=== PATIENT | female | born 1935 | race Caucasian/White ===

== ENCOUNTER 2019-08-10 09:13 | Outpatient (CLI) | payer MEDICARE, OTHER, SELFPAY ==
--- NOTE | 2019-08-10 14:23 | PFTS_ITS ---
Date of Study:08/10/19 Date of Dictation: MECHANICS: Forced vital capacity (FVC) is reduced. Forced expiratory volume in one second (FEV1) is reduced. FEV1/FVC is reduced. FLOW VOLUME LOOP: Reduced flow at low lung volumes with significant scooping. LUNG VOLUMES: Not performed DIFFUSING CAPACITY FOR CARBON MONOXIDE: Severely diminished INTERPRETATION: The pulmonary function tests are consistent with severe obstruction. A component of restriction cannot be ruled out without the measurement of lung volumes. Gas exchange (DLCO) is severely reduced. MTDD
== END 2019-08-10 09:14 | disposition home or self-care (01) ==
LOC: RT 09:18
PROVIDERS: PCP Internal Medicine; Visit Provider Internal Medicine
DX: J44.9 Chronic obstructive pulmonary disease, unspecified (principal)
CPT/HCPCS: 94060; 94729; J7611

== ENCOUNTER 2019-12-25 16:38 | Emergency (ER) | payer MEDICARE, OTHER, SELFPAY ==
[2019-12-25 17:39] VITALS: BP 168/90; PULSE 77; RESP 16; TEMP 36.3; O2SAT 94; BMI 18.8
--- NOTE | 2019-12-25 18:25 | CTR_ITS ---
PROCEDURE INFORMATION: Exam: CT Head Without Contrast Exam date and time: 12/25/2019 7:16 PM Age: 84 years old Clinical indication: Altered mental status/memory loss; Additional info: AMS TECHNIQUE: Imaging protocol: Computed tomography of the head without contrast. Radiation optimization: All CT scans at this facility use at least one of these dose optimization techniques: automated exposure control; mA and/or kV adjustment per patient size (includes targeted exams where dose is matched to clinical indication); or iterative reconstruction. COMPARISON: No relevant prior studies available. RADIATION DOSE METRICS: Total DLP (mGy-cm): 821.33 FINDINGS: There is [id number] generalized atrophy. There are mild areas of decreased attenuation in the periventricular white matter which is nonspecific but likely relates to small vessel ischemic change. There is no evidence for acute infarct. There is no evidence for mass. There is no hemorrhage. There are no extra-axial fluid collections. There is no midline shift. The skull is intact. The visualized paranasal sinuses are well aerated. There is some minimal fluid within the left sphenoid sinus. There is atherosclerotic change of the cavernous carotid arteries. CT/CT head wo con* [id number] IMPRESSION: No evidence for acute infarct, mass or hemorrhage. Radiation Dose CTDIVOL = (mGy): DLP = 821.33 (mGy-cm)
--- NOTE | 2019-12-25 18:46 | ED_ITS ---
HPI - Psych General: Chief Complaint: Psychiatric Symptoms Stated Complaint: agitation, paranoid, mild confusion Time Seen by Provider: 12/25/19 18:39 History of Present Illness: HPI Narrative: Patient has been more confused since she is been a lot down in her room down the longterm. He just does not understand what is going on. Denies any problems with urination fever chills nausea vomiting. Just increased confusion. complaint: altered mental status Onset (ago): day(s) Duration: intermittent, changing over time and getting worse History of same: Yes Relieving factors: none Exacerbating factors: other (Lockdown nursing note) Associated symptoms: Reports no associated symptoms; Deny depression Treatments prior to arrival: none Review of Systems Const: Denies: fever(s), chills or body aches Eyes: Denies: change in vision or blurry vision ENMT: Reports: other (Eye redness allergies); Denies: throat pain or nasal congestion Card: Denies: chest pain or dyspnea on exertion Resp: Denies: dyspnea, productive cough or non-productive cough GI: Denies: abdominal pain, nausea or vomiting Musc: Denies: extremity pain Skin/Breast: Denies: rash Neuro: Denies: headache(s) Psych: Reports: other (Confusion); Denies: anxiety or depression Cooper/Lymph: Denies: easy bruising PFSH ED PFSH: Medical History (Updated 12/25/19 @ 19:44 by ROBIN Segal) CAD (coronary artery disease) COPD (chronic obstructive pulmonary disease) History of inferior wall myocardial infarction Hyperlipidemia Hypertension Squamous cell carcinoma of left upper extremity Surgical History History of appendectomy (~1940) History of coronary artery stent placement History of hysterectomy (~1982) History of repair of right rotator cuff (~2013) Family History Denies family history of Anesthesia complication Bleeding disorder Social History Smoking and tobacco status: former smoker Quit status (tobacco): has quit using tobacco Year quit tobacco: 3 Second hand smoke exposure: No Alcohol intake: never Desire information about alcohol rehabilitation?: No Counseling given: No Desire information about substance/drug rehabilitation?: No Counseling given: No Adopted: No Caregiver/support person: No Lives independently: Yes Housing: House Marital status: / Highest education level completed: High School Graduate Current occupational status: retired Current occupational exposures/hazards: No Pets and animals: No History of recent travel: No Current gender identity: Female Ashlee/Protestant: Congregational Special ashlee needs: No Financial difficulty paying for basics: Decline to Answer Physical Exam Const: COMMON NORMALS: no acute distress, average body habitus and patient oriented x3 HENMT: COMMON NORMALS: normocephalic HEAD & SCALP: normal to inspection and normocephalic FACE & SINUS: normal facial exam Eye: COMMON NORMALS: conjunctivae normal GENERAL EYE: other (Conjunctive is slightly red both eyes) CONJUNCTIVA: Yes conjunctivae normal Neck/C-Spine: COMMON NORMALS: no JVD Chest: COMMONS NORMALS: normal inspection of the chest Resp: COMMON NORMALS: normal respiratory effort and clear to auscultation bilaterally AUSCULTATION: clear to auscultation bilaterally Cardio: COMMON NORMALS: no JVD, regular rate and regular rhythm RATE: regular rate RHYTHM: regular rhythm GI: COMMON NORMALS: Normal to inspection, nondistended, normoactive bowel sounds present Extremity: COMMON NORMALS: normal to inspection and full ROM Neuro: COMMON NORMALS: patient oriented x3 and CN's II-XII intact bilaterally MDM - Psych Lab Data: Labs: Lab Results 12/25/19 12/25/19 Range/Units 18:59 18:59 WBC 6.5 (4.0-10.0) 10^3/ uL RBC 5.19 (4.1-5.3) 10^6/u L Hgb 16.1 H (11.5-15.3) g/dL Hct 48.2 H (37.0-47.0) % MCV 92.9 (81-99) fL MCH 31.0 (28.0-34.0) pg MCHC 33.4 (30.0-36.0) g/dL RDW 12.1 (12.1-15.1) % Plt Count 205 (130-400) 10^3/c mm MPV 10.5 H (7.4-10.4) fL Neut % (Auto) 69.1 % Lymph % (Auto) 14.9 % [place] % (Auto) 11.8 % Eos % (Auto) 3.1 % Baso % (Auto) 0.6 % Neut # (Auto) 4.52 (1.8-7.7) 10^3/u L Lymph # (Auto) 1.0 (0.8-4.8) 10^3/u L [place] # (Auto) 0.8 (0.2-0.9) 10^3/u L Eos # (Auto) 0.2 (0.0-0.8) 10^3/u L Baso # (Auto) 0.0 (0.0-0.1) 10^3/u L Nucleated RBC % (a uto) 0 % Nucleated RBCs # 0.0 /100WBC Sodium 131 L (136-145) mmol/L Potassium 4.6 (3.5-5.1) mmol/L Chloride 94 L (98-107) mmol/L Carbon Dioxide 25 (22-29) mmol/L Anion Gap 16.6 (5-19) BUN 10 (8-23) mg/dL Creatinine 0.6 (0.5-0.9) mg/dL GFR Calculation Not Reportable Glucose 109 (65-115) mg/dL Calculated Osmolal ity 272 L (285-295) mOsm/k g Calcium 8.9 (8.5-10.5) mg/dL Total Bilirubin 1.1 (0.15-1.2) mg/dL AST 23 (0-32) U/L ALT 12 (0-33) U/L Alkaline Phosphata se 112 H (35-105) IU/L Total Protein 7.2 (6.6-8.7) g/dL Albumin 4.2 (3.5-5.2) g/dL Globulin 3.0 (1.3-4.6) g/dL Discharge Plan Discharge Patient Disposition: Home Clinical Impression: Confusion Condition: Stable Prescriptions: No Action Brovana 15 mcg/2 mL solution for nebulization 2 ml INHALATION BID Qty: 120 RF: 6 albuterol sulfate [Ventolin HFA] 90 mcg/actuation HFA aerosol inhaler 2 puff INHALATION QID PRNRF: 0 nitroglycerin [Nitrostat] 0.4 mg tablet, sublingual 0.4 mg SUBLINGUAL Q5M PRNRF: 0 clopidogrel 75 mg tablet 75 mg PO ONCE RF: 0 aspirin 81 mg tablet,delayed release (DR/EC) 40 mg PO ONCE RF: 0 (DME) nebulizers Misc See Rx Instructions .ROUTE .MEDSUPPLY Qty: 1 RF: 0 (DME) nebulizer accessories Kit See Rx Instructions .ROUTE .MEDSUPPLY Qty: 1 RF: 0 cetirizine-pseudoephedrine [Zyrtec-D] 5-120 mg tablet extended release 12 hr 1 tab PO DAILY Qty: 24 RF: 0 Incruse Ellipta 62.5 mcg/actuation blister with device 1 inh INHALATION DAILY Qty: 30 RF: 3 simvastatin 40 mg tablet 40 mg PO ONCE Qty: 90 RF: 3 metoprolol tartrate 25 mg tablet 12.5 mg PO BID Qty: 90 RF: 3 Discharge Orders: Discharge Order (Routine); Ordered 12/25/19 Ordered By: Jvai Lainez Referrals: Oscar Gillespie MD [Primary Care Provider] - Discharge Diet: Usual diet Discharge Activity: Resume usual activity Activity Restrictions/Additional Instructions: Follow-up your family medical provider if symptoms continue went over test CT of the head was negative labs look good to your present diet Discharge Date/Time: 12/25/19 19:51 Coding Level of Care Code ED Curator [employer] for Curt Reinoso Exam Comprehensive
[2019-12-25 19:17] LABS: Basophils % 0.6 %; Eosinophils # 0.2 10^3/uL (0.0-0.8); Eosinophils % 3.1 %; Hematocrit 48.2 % (37.0-47.0); Hemoglobin 16.1 g/dL (11.5-15.3); Lymphocytes % 14.9 %; Mean Corpuscular HGB Conc 33.4 g/dL (30.0-36.0); Mean Corpuscular Volume 92.9 fL (81-99); Mean Platelet Volume 10.5 fL (7.4-10.4); Monocytes # 0.8 10^3/uL (0.2-0.9); Monocytes % 11.8 %; Neutrophils # 4.52 10^3/uL (1.8-7.7); Neutrophils % 69.1 %; Nucleated Red Blood Cells % 0 %; Platelet Count 205 10^3/cmm (130-400); Red Blood Count 5.19 10^6/uL (4.1-5.3); Red Cell Distribution Width 12.1 % (12.1-15.1); White Blood Count 6.5 10^3/uL (4.0-10.0)
[2019-12-25 19:25] LABS: Alanine Aminotransferase 12 U/L (0-33); Albumin Level 4.2 g/dL (3.5-5.2); Alkaline Phosphatase 112 IU/L (35-105); Anion Gap 16.6 (5-19); Aspartate Amino Transferase 23 U/L (0-32); Blood Urea Nitrogen 10 mg/dL (8-23); Calcium 8.9 mg/dL (8.5-10.5); Carbon Dioxide 25 mmol/L (22-29); Chloride 94 mmol/L (98-107); Glucose 109 mg/dL (65-115); Osmolality Calculated 272 mOsm/kg (285-295); Potassium 4.6 mmol/L (3.5-5.1); Sodium 131 mmol/L (136-145); Total Bilirubin 1.1 mg/dL (0.15-1.2); Total Protein 7.2 g/dL (6.6-8.7)
[2019-12-25 19:50] VITALS: BP 174/87; PULSE 90; RESP 18; O2SAT 90
== END 2019-12-25 19:51 | disposition home or self-care (01) ==
PROVIDERS: Emergency Provider Nurse Practitioner Family; PCP Internal Medicine
DX: R41.0 Disorientation, unspecified (principal); Z79.02 Long term (current) use of antithrombotics/antiplatelets; Z79.82 Long term (current) use of aspirin; I25.10 Atherosclerotic heart disease of native coronary artery without angina pectoris; J44.9 Chronic obstructive pulmonary disease, unspecified; I25.2 Old myocardial infarction; E78.5 Hyperlipidemia, unspecified; I10 Essential (primary) hypertension; Z87.891 Personal history of nicotine dependence
CPT/HCPCS: 12345; 36415; 70450; 80053; 85025; 99283; 99284

== ENCOUNTER 2019-12-29 09:04 | Emergency (ER) | payer MEDICARE, OTHER, SELFPAY ==
[2019-12-29 09:04] VITALS: BP 142/63; PULSE 92; RESP 18; O2SAT 96; BMI 20.7
[2019-12-29 09:11] VITALS: PULSE 96; RESP 18; O2SAT 95
--- NOTE | 2019-12-29 09:13 | CTR_ITS ---
PROCEDURE INFORMATION: Exam: CT Head Without Contrast Exam date and time: 12/29/2019 9:14 AM Age: 84 years old Clinical indication: Injury or trauma; Fall; Blunt trauma (contusions or hematomas) TECHNIQUE: Imaging protocol: Computed tomography of the head without contrast. Radiation optimization: All CT scans at this facility use at least one of these dose optimization techniques: automated exposure control; mA and/or kV adjustment per patient size (includes targeted exams where dose is matched to clinical indication); or iterative reconstruction. COMPARISON: CT head wo con* [id number] 12/25/2019 7:15 PM RADIATION DOSE METRICS: Total DLP (mGy-cm): 706.19 FINDINGS: Brain: There is patchy decreased density of the white matter indicating chronic small vessel white matter ischemia. There is no intracranial hemorrhage, edema or other acute abnormality in the brain. Cerebral ventricles: Generalized prominence of the ventricles and sulci consistent with diffuse chronic atrophy. Bones/joints: Unremarkable. No acute fracture. Paranasal sinuses: Visualized sinuses are unremarkable. No fluid levels. Mastoid air cells: Visualized mastoid air cells are well aerated. Soft tissues: Unremarkable. CT/CT head wo con* [id number] IMPRESSION: Chronic atrophy. No acute abnormality. Radiation Dose CTDIVOL = (mGy): DLP = 706.19 (mGy-cm)
--- NOTE | 2019-12-29 09:18 | XRR_ITS ---
PROCEDURE INFORMATION: Exam: XR Right Tibia and Fibula Exam date and time: 12/29/2019 9:19 AM Age: 84 years old Clinical indication: Injury or trauma; Fall; Blunt trauma; Lower leg; Right TECHNIQUE: Imaging protocol: XR Right tibia and fibula. Views: 2 views. COMPARISON: No relevant prior studies available. FINDINGS: Bones/joints: Normal. Soft tissues: Normal. XR/XR tibia fibula RT 2V [id number] IMPRESSION: No acute findings.
--- NOTE | 2019-12-29 09:19 | W.ED.FALL ---
HPI - Fall General: Chief Complaint: Fall Stated Complaint: FALL HEMATOMA TO LEG Time Seen by Provider: 12/29/19 09:05 History of Present Illness: HPI Narrative: [facility] with complaint of a hematoma to right lower extremity and a fall with unknown loss of consciousness. Was found on the floor today patient is confused as usual. Was seen here earlier in the week with a CT head which is negative. complaint: fall Onset (ago): hour(s) Fall from: other (Unknown) Fall witnessed: no Place fall occurred: [facility] Loss of consciousness: Unsure Prolonged down time: unclear Symptoms prior to fall: other (Unknown) Context: other (Unknown) Location of injury: other (Has hematoma right leg been present for couple 3 days) Severity: mild Associated symptoms-after fall: Denies abdominal pain, chest pain or headache(s) Review of Systems Const: Denies: fever(s), chills or body aches Eyes: Denies: change in vision or blurry vision ENMT: Denies: throat pain or nasal congestion Card: Denies: chest pain or dyspnea on exertion Resp: Denies: dyspnea, productive cough or non-productive cough GI: Denies: abdominal pain, nausea or vomiting Musc: Reports: extremity pain and other (History of 3 blisters right lower extremity with redness and tenderness patient complains of pain there) Skin/Breast: Denies: rash Neuro: Denies: headache(s) Psych: Denies: anxiety or depression Cooper/Lymph: Denies: easy bruising PFS ED PFSH: Medical History (Updated 12/29/19 @ 11:40 by ROBIN Segal) CAD (coronary artery disease) COPD (chronic obstructive pulmonary disease) History of inferior wall myocardial infarction Hyperlipidemia Hypertension Squamous cell carcinoma of left upper extremity Surgical History History of appendectomy (~1940) History of coronary artery stent placement History of hysterectomy (~1982) History of repair of right rotator cuff (~2013) Family History Denies family history of Anesthesia complication Bleeding disorder Social History Smoking and tobacco status: former smoker Quit status (tobacco): has quit using tobacco Year quit tobacco: 3 Second hand smoke exposure: No Alcohol intake: never Desire information about alcohol rehabilitation?: No Counseling given: No Desire information about substance/drug rehabilitation?: No Counseling given: No Adopted: No Caregiver/support person: No Lives independently: Yes Housing: House Marital status: / Highest education level completed: High School Graduate Current occupational status: retired Current occupational exposures/hazards: No Pets and animals: No History of recent travel: No Current gender identity: Female Ashlee/Nondenominational: Caodaism Special ashlee needs: No Financial difficulty paying for basics: Decline to Answer Physical Exam Const: COMMON NORMALS: no acute distress, average body habitus and patient oriented x3 HENMT: COMMON NORMALS: normocephalic HEAD & SCALP: normal to inspection and normocephalic FACE & SINUS: normal facial exam Eye: COMMON NORMALS: conjunctivae normal GENERAL EYE: appearance normal, both eyes and all related structures CONJUNCTIVA: Yes conjunctivae normal Neck/C-Spine: COMMON NORMALS: no JVD Chest: COMMONS NORMALS: normal inspection of the chest Resp: COMMON NORMALS: normal respiratory effort and clear to auscultation bilaterally AUSCULTATION: clear to auscultation bilaterally Cardio: COMMON NORMALS: no JVD, regular rate and regular rhythm RATE: regular rate RHYTHM: regular rhythm GI: COMMON NORMALS: Normal to inspection, nondistended, normoactive bowel sounds present Extremity: COMMON NORMALS: full ROM NARRATIVE EXTREMITY EXAM: Right lower extremity has 3 clear to bloody blisters to the medial aspect has tenderness throughout the lower extremity below the knee and does have redness with increased warmth to that extremity 1+ nonpitting edema Neuro: COMMON NORMALS: patient oriented x3 Skin: NARRATIVE SKIN EXAM: Very poor skin turgor Course Vital Signs: Vital signs: Vital Signs Pulse Rate 106 H 12/29/19 12:27 Respiratory Rate 20 H 12/29/19 12:27 Blood Pressure 135/69 12/29/19 11:56 Pulse Oximetry 95 12/29/19 12:27 MDM - Fall MDM Narrative: Medical decision making narrative: Discussed case with Dr. Rodriguez. Went over lab values with Dr. Rodriguez. Patient with increased BUN and creatinine increased white WBC has right lower leg cellulitis UA was positive on microscopic with 1+ bacteria and with with just a trace of blood. If leg worsens instructed bring patient back to the ER. Patient maintained sats 96to 94% here and not on O2. Lab Data: Labs: Lab Results 12/29/19 12/29/19 12/29/19 Range/Units 09:46 09:46 10:48 WBC 20.8 H (4.0-10.0) 10^3/ uL RBC 5.23 (4.1-5.3) 10^6/u L Hgb 16.2 H (11.5-15.3) g/dL Hct 48.0 H (37.0-47.0) % MCV 91.8 (81-99) fL MCH 31.0 (28.0-34.0) pg MCHC 33.8 (30.0-36.0) g/dL RDW 12.6 (12.1-15.1) % Plt Count 173 (130-400) 10^3/c mm MPV 11.2 H (7.4-10.4) fL Neut % (Auto) 91.6 % Lymph % (Auto) 1.5 % [place] % (Auto) 5.8 % Eos % (Auto) 0.0 % Baso % (Auto) 0.4 % Neut # (Auto) 18.99 H (1.8-7.7) 10^3/u L Lymph # (Auto) 0.3 L (0.8-4.8) 10^3/u L [place] # (Auto) 1.2 H (0.2-0.9) 10^3/u L Eos # (Auto) 0.0 (0.0-0.8) 10^3/u L Baso # (Auto) 0.1 (0.0-0.1) 10^3/u L Nucleated RBC % (a uto) 0 % Nucleated RBCs # 0.0 /100WBC Sodium 125 L (136-145) mmol/L Potassium 4.6 (3.5-5.1) mmol/L Chloride 88 L (98-107) mmol/L Carbon Dioxide 25 (22-29) mmol/L Anion Gap 16.6 (5-19) BUN 31 H (8-23) mg/dL Creatinine 1.1 H (0.5-0.9) mg/dL GFR Calculation Not Reportable Glucose 135 H (65-115) mg/dL Calculated Osmolal ity 269 L (285-295) mOsm/k g Calcium 9.8 (8.5-10.5) mg/dL Total Bilirubin 1.7 H (0.15-1.2) mg/dL AST 15 (0-32) U/L ALT 10 (0-33) U/L Alkaline Phosphata se 98 (35-105) IU/L Total Protein 6.8 (6.6-8.7) g/dL Albumin 3.4 L (3.5-5.2) g/dL Globulin 3.4 (1.3-4.6) g/dL Urine Color Dark yellow (Yellow) Urine Appearance Clear (CLEAR) Urine pH 5 (5-7) Ur Specific Gravit y 1.025 (1.005-1.030) Urine Protein 1+ H (Negative) Urine Glucose (UA) Norm (Normal) Urine Ketones 1+ H (Negative) Urine Blood Trace H (Negative) Urine Nitrate Negative (Negative) Urine Bilirubin 1+ H (Negative) Urine Urobilinogen 4 H (Negative) mg/dL Ur Leukocyte Mary Kay ase Negative (Negative) Urine RBC None (0-2) /hpf Urine WBC 0-4 H (0-5) /hpf Ur Squamous Epith Cells Rare (0-5) /hpf Amorphous Sediment 2+ /hpf Urine Bacteria 1+ H (NONE) /hpf Hyaline Casts 5-10 H /lpf EKG Data^: EKG 1: EKG interpretation date: 12/29/19 EKG interpretation time: 09:53 Interpretation: Sinus rhythm 95 bpm AK interval 152 ms QRS duration 67 ms has right atrial enlargement P wave 0.3 mV Discharge Plan Discharge Patient Disposition: Home Clinical Impression: Acute hyponatremia, Acute UTI Cellulitis Qualifiers: Site of cellulitis: extremity Site of cellulitis of extremity: lower extremity Laterality: right Qualified Code(s): L03.115 - Cellulitis of right lower limb Condition: Stable Prescriptions: New Keflex 500 mg capsule 500 mg PO TID 7 Days Qty: 21 RF: 0 No Action Brovana 15 mcg/2 mL solution for nebulization 2 ml INHALATION BID Qty: 120 RF: 6 albuterol sulfate [Ventolin HFA] 90 mcg/actuation HFA aerosol inhaler 2 puff INHALATION QID PRNRF: 0 nitroglycerin [Nitrostat] 0.4 mg tablet, sublingual 0.4 mg SUBLINGUAL Q5M PRNRF: 0 clopidogrel 75 mg tablet 75 mg PO ONCE RF: 0 aspirin 81 mg tablet,delayed release (DR/EC) 40 mg PO ONCE RF: 0 (DME) nebulizers Misc See Rx Instructions .ROUTE .MEDSUPPLY Qty: 1 RF: 0 (DME) nebulizer accessories Kit See Rx Instructions .ROUTE .MEDSUPPLY Qty: 1 RF: 0 cetirizine-pseudoephedrine [Zyrtec-D] 5-120 mg tablet extended release 12 hr 1 tab PO DAILY Qty: 24 RF: 0 Incruse Ellipta 62.5 mcg/actuation blister with device 1 inh INHALATION DAILY Qty: 30 RF: 3 simvastatin 40 mg tablet 40 mg PO ONCE Qty: 90 RF: 3 metoprolol tartrate 25 mg tablet 12.5 mg PO BID Qty: 90 RF: 3 Discharge Orders: Discharge Order (Routine); Ordered 12/29/19 Ordered By: Javi Lainez Referrals: Oscar Gillespie MD [Primary Care Provider] - Discharge Diet: Usual diet Discharge Activity: Resume usual activity Patient Instructions: Cellulitis (ED) Activity Restrictions/Additional Instructions: Follow-up with medical provider as directed. Take medications as prescribed. Return to the ER or your medical provider if condition worsens. Please read and understand discharge instructions. If any questions ask please. Make sure to drink plenty of fluids. Keep right lower extremity wrapped. [facility] in next day or 2. Recheck basic labs on Tuesday. Patient is a fall risk patient is to use walker anytime she is up. Discharge Date/Time: 12/29/19 12:32 Coding Level of Care Code ED Business Systems Lead for Curt Fwd Exam Comprehensive
--- NOTE | 2019-12-29 09:21 | ECG_ITS ---
[facility] Test Date: 2019-12-29 Pat Name: Anthony Acosta Department: Room: Gender: Female Dictaphone Operator: : 1935 Requested By: Javi Lainez Order Number: [id number] Jonas MD: Elizabeth Brian M.D. Measurements Intervals [place] Rate: 95 P: 85 ID: [id number] QRS: 45 QRSD: 67 T: 76 QT: 322 QTc: 405 Interpretive Statements SINUS RHYTHM RIGHT ATRIAL ENLARGEMENT [0.3mV P WAVE] LOW QRS VOLTAGE IN EXTREMITY LEADS [QRS DEFLECTION < 0.5 mV IN LIMB LEADS] Compared to ECG 03/26/2018 16:33:02 Low QRS voltage now present Myocardial infarct finding no longer present Electronically Signed On 12-29-2019 17:55:11 CDT by Elizabeth Brian M.D. [email or web address]
[2019-12-29 10:05] LABS: Basophils # 0.1 10^3/uL (0.0-0.1); Basophils % 0.4 %; Hemoglobin 16.2 g/dL (11.5-15.3); Lymphocytes # 0.3 10^3/uL (0.8-4.8); Lymphocytes % 1.5 %; Mean Corpuscular HGB Conc 33.8 g/dL (30.0-36.0); Mean Corpuscular Volume 91.8 fL (81-99); Mean Platelet Volume 11.2 fL (7.4-10.4); Monocytes # 1.2 10^3/uL (0.2-0.9); Monocytes % 5.8 %; Neutrophils # 18.99 10^3/uL (1.8-7.7); Neutrophils % 91.6 %; Nucleated Red Blood Cells % 0 %; Platelet Count 173 10^3/cmm (130-400); Red Blood Count 5.23 10^6/uL (4.1-5.3); Red Cell Distribution Width 12.6 % (12.1-15.1); White Blood Count 20.8 10^3/uL (4.0-10.0)
[2019-12-29 10:13] LABS: Alanine Aminotransferase 10 U/L (0-33); Albumin Level 3.4 g/dL (3.5-5.2); Alkaline Phosphatase 98 IU/L (35-105); Anion Gap 16.6 (5-19); Aspartate Amino Transferase 15 U/L (0-32); Blood Urea Nitrogen 31 mg/dL (8-23); Calcium 9.8 mg/dL (8.5-10.5); Carbon Dioxide 25 mmol/L (22-29); Chloride 88 mmol/L (98-107); Globulin 3.4 g/dL (1.3-4.6); Glucose 135 mg/dL (65-115); Osmolality Calculated 269 mOsm/kg (285-295); Potassium 4.6 mmol/L (3.5-5.1); Sodium 125 mmol/L (136-145); Total Bilirubin 1.7 mg/dL (0.15-1.2); Total Protein 6.8 g/dL (6.6-8.7)
[2019-12-29] MEDS: cefTRIAXone 1,000 MG in sodium chloride 0.9% (plus) 50 ML 100 MG IV (10:27)
[2019-12-29 10:29] VITALS: BP 137/64; PULSE 98; RESP 29; O2SAT 96
[2019-12-29] MEDS: sodium chloride 0.9% 1,000 ML 999 ML IV (11:12)
[2019-12-29 11:22] LABS: Blood Urine Trace (Negative); Glucose Urine UA Norm (Normal); Ketones Urine 1+ (Negative); Nitrate Urine Negative (Negative); Protein Urine 1+ (Negative); Specific Gravity, Urine 1.025 (1.005-1.030); Urine Appearance Clear (CLEAR); Urine Color Dark Yellow (Yellow); pH Urine 5 (5-7)
[2019-12-29 11:23] LABS: Add Urine Microscopic? YES; Bacteria Urine 1+ /hpf; Bilirubin Urine 1+ (Negative); Leukocyte Esterase Urine Negative (Negative); Squamous Epithelial Cell Urine RARE /hpf (0-5); Urobilinogen Urine 4 mg/dL (Negative); WBC Urine 0-4 /hpf (0-5)
[2019-12-29 11:24] LABS: Add Urine Culture? No; Amorphous Sediment Urine 2+ /hpf
[2019-12-29 11:56] VITALS: BP 135/69; PULSE 107; RESP 20; O2SAT 98
[2019-12-29 12:27] VITALS: PULSE 106; RESP 20; O2SAT 95
== END 2019-12-29 12:32 | disposition home or self-care (01) ==
PROVIDERS: Emergency Provider Nurse Practitioner Family; PCP Internal Medicine
DX: L03.115 Cellulitis of right lower limb (principal); N39.0 Urinary tract infection, site not specified; E87.1 Hypo-osmolality and hyponatremia; Z79.02 Long term (current) use of antithrombotics/antiplatelets; Z79.82 Long term (current) use of aspirin; I25.10 Atherosclerotic heart disease of native coronary artery without angina pectoris; J44.9 Chronic obstructive pulmonary disease, unspecified; I25.2 Old myocardial infarction; E78.5 Hyperlipidemia, unspecified; I10 Essential (primary) hypertension; Z87.891 Personal history of nicotine dependence
CPT/HCPCS: 12345; 36415; 70450; 73590; 80053; 81001; 85025; 87040; 93005; 96365; 99283; 99284; J0696; J7030

== ENCOUNTER 2020-02-19 12:53 | Inpatient (IN) | payer MEDICARE, OTHER, SELFPAY ==
[2020-02-19] VITALS (9 sets, daily range): BP systolic 120–149; BP diastolic 70–97; PULSE 74–118; RESP 16–28; TEMP 36.6–38.1; O2SAT 94–100; BMI 18.8
--- NOTE | 2020-02-19 13:28 | XRR_ITS ---
PROCEDURE INFORMATION: Exam: XR Chest, 1 View Exam date and time: 02/19/2020 1:29 PM Age: 85 years old Clinical indication: Cough and dyspnea; Additional info: Dyspnea/cough TECHNIQUE: Imaging protocol: XR of the chest Views: 1 view. COMPARISON: CR Chest 1 [place] [id number] 03/26/2018 9:27 AM FINDINGS: Lungs: There is overinflation of the lungs consistent with emphysema. Bilateral interstitial fibrosis is present and unchanged. There is no airspace consolidation. Pleural space: Unremarkable. No pleural effusion. No pneumothorax. Heart/Mediastinum: Heart is normal for the AP projection. There is calcification of the aortic arch. Bones/joints: Unremarkable. XR/XR chest 1V portable [id number] IMPRESSION: 1. Emphysema with interstitial fibrosis. 2. No acute abnormality.
[2020-02-19 13:44] LABS: Basophils # 0.1 10^3/uL (0.0-0.1); Basophils % 0.3 %; Hematocrit 37.5 % (37.0-47.0); Hemoglobin 11.1 g/dL (11.5-15.3); Lymphocytes # 0.7 10^3/uL (0.8-4.8); Lymphocytes % 2.7 %; Mean Corpuscular HGB Conc 29.6 g/dL (30.0-36.0); Mean Corpuscular Hemoglobin 25.5 pg (28.0-34.0); Mean Platelet Volume 9.9 fL (7.4-10.4); Monocytes # 1.1 10^3/uL (0.2-0.9); Monocytes % 4.4 %; Neutrophils # 23.56 10^3/uL (1.8-7.7); Neutrophils % 91.8 %; Nucleated Red Blood Cells % 0 %; Platelet Count 354 10^3/cmm (130-400); Red Blood Count 4.36 10^6/uL (4.1-5.3); Red Cell Distribution Width 17.6 % (12.1-15.1); White Blood Count 25.7 10^3/uL (4.0-10.0)
--- NOTE | 2020-02-19 13:53 | ED_ITS ---
HPI - SOB/Dyspnea General: Chief Complaint: Shortness of Breath/Dyspnea Stated Complaint: MS CHANGES, RESP Time Seen by Provider: 02/19/20 13:12 History of Present Illness: HPI Narrative: 85-year-old female brought in by EMS from a local assisted living care. There is concern there that she had change in mental status she also seemed to have significant difficulty breathing is conversationally dyspneic. She is unable to answer in a way that is helpful at all to contribute to her history she does follow simple commands and responds to verbal stimuli but her responses are nonsensical at best. MD elicited complaint: shortness of breath and cough Pertinent past history: COPD Onset (ago): hour(s) Timing: constant Severity: moderate Exacerbating factors: coughing Relieving factors: oxygen Known history of: COPD Associated symptoms: Reports cough; Deny abdominal pain, chest pain, fever(s) or vomiting Treatment prior to arrival: oxygen Review of Systems General: Reports: ROS unobtainable due to mental status Const: Denies: fever(s) Card: Denies: chest pain GI: Denies: abdominal pain or vomiting PFS ED PFSH: Medical History (Updated 02/19/20 @ 17:00 by Alessandro Ferreira DO) CAD (coronary artery disease) COPD (chronic obstructive pulmonary disease) History of inferior wall myocardial infarction Hyperlipidemia Hypertension Squamous cell carcinoma of left upper extremity Surgical History History of appendectomy (~1940) History of coronary artery stent placement History of hysterectomy (~1982) History of repair of right rotator cuff (~2013) Family History Denies family history of Anesthesia complication Bleeding disorder Social History Smoking and tobacco status: former smoker Quit status (tobacco): has quit using tobacco Year quit tobacco: 3 Second hand smoke exposure: No Alcohol intake: never Desire information about alcohol rehabilitation?: No Counseling given: No Desire information about substance/drug rehabilitation?: No Counseling given: No Adopted: No Caregiver/support person: No Lives independently: Yes Housing: House Marital status: / Highest education level completed: High School Graduate Current occupational status: retired Current occupational exposures/hazards: No Pets and animals: No History of recent travel: No Current gender identity: Female Ashlee/Methodist: Anabaptist Special ashlee needs: No Financial difficulty paying for basics: Decline to Answer Physical Exam HENMT: COMMON NORMALS: normocephalic, atraumatic and hearing grossly normal bilaterally HEAD & SCALP: normocephalic and atraumatic Neck/C-Spine: COMMON NORMALS: no JVD Lymph: LYMPHATIC: no lymphadenopathy noted and no lymphedema noted Resp: AUSCULTATION: wheezes and diminished lung sounds Cardio: COMMON NORMALS: no JVD, regular rate, regular rhythm and No murmurs present (Cardio) RATE: regular rate RHYTHM: regular rhythm GI: COMMON NORMALS: Soft to palpation and No hepatosplenomegaly present AUSCULTATION: Yes normoactive bowel sounds PALPATION: Yes Soft to palpation, No Tenderness to palpation present (GI), No Guarding due to palpation present (GI) and Yes No hepatosplenomegaly present Extremity: OTHER: Redness and erythema slight induration bilaterally lower extremities are some actually subcutaneous purulent material on the right lower leg in the medial aspect looks like from work comes in friction with the other leg where she lays the left leg over top of it. On left upper arm she has some excoriation and mild redness does not look acutely infected is not indurated. Skin: COMMON NORMALS: no rashes or lesions noted GENERAL SKIN EXAM: no rashes or lesions noted Course Vital Signs: Vital signs: Vital Signs Temperature 97.9 F 02/19/20 12:58 Pulse Rate 118 H 02/19/20 12:58 Respiratory Rate 28 H 02/19/20 12:58 Blood Pressure 144/90 02/19/20 12:58 Pulse Oximetry 100 02/19/20 12:58 MDM - SOB/Dyspnea MDM Narrative: Medical decision making narrative: Her Covid test is negative I suspect her elevated white count is due to her cellulitis was started on vancomycin and admit discussed Dr. oR she is a no code Lab Data: Labs: Lab Results 02/19/20 02/19/20 02/19/20 Range/Units 12:39 12:39 12:39 WBC 25.7 H (4.0-10.0) 10^3/ uL RBC 4.36 (4.1-5.3) 10^6/u L Hgb 11.1 L (11.5-15.3) g/dL Hct 37.5 (37.0-47.0) % MCV 86.0 (81-99) fL MCH 25.5 L (28.0-34.0) pg MCHC 29.6 L (30.0-36.0) g/dL RDW 17.6 H (12.1-15.1) % Plt Count 354 (130-400) 10^3/c mm MPV 9.9 (7.4-10.4) fL Neut % (Auto) 91.8 % Lymph % (Auto) 2.7 % [place] % (Auto) 4.4 % Eos % (Auto) 0.0 % Baso % (Auto) 0.3 % Neut # (Auto) 23.56 H (1.8-7.7) 10^3/u L Lymph # (Auto) 0.7 L (0.8-4.8) 10^3/u L [place] # (Auto) 1.1 H (0.2-0.9) 10^3/u L Eos # (Auto) 0.0 (0.0-0.8) 10^3/u L Baso # (Auto) 0.1 (0.0-0.1) 10^3/u L Nucleated RBC % (a uto) 0 % Nucleated RBCs # 0.0 /100WBC Specimen Type Sample Site ABG pH (7.35-7.45) ABG pCO2 (35-45) mmHg ABG pO2 (80.0-100.0) mmH g ABG HCO3 (22-26) mmol/L ABG O2 Saturation ABG Base Excess (-2.0-2.0) mmol/ L Lamont Test A-a O2 Gradient (5-10) mmHg Hematocrit (37-47) % Hgb O2 Saturation (95-100) % Carboxyhemoglobin (0.4-20.1) %THgb Methemoglobin (0.4-1.5) % Total Hemoglobin (12-16) g/dL Ionized Calcium (1.1-1.4) mmol/L O2 Delivery Device FiO2 % Acute Care Nurse ID Sodium 135 L (136-145) mmol/L Potassium 4.0 (3.5-5.1) mmol/L Chloride 95 L (98-107) mmol/L Carbon Dioxide 25 (22-29) mmol/L Anion Gap 19.0 (5-19) BUN 10 (8-23) mg/dL Creatinine 0.6 (0.5-0.9) mg/dL GFR Calculation Not Reportable Glucose 134 H (65-115) mg/dL Calculated Osmolal ity 281 L (285-295) mOsm/k g Calcium 8.6 (8.5-10.5) mg/dL Total Bilirubin 0.6 (0.15-1.2) mg/dL AST 12 (0-32) U/L ALT 11 (0-33) U/L Alkaline Phosphata se 114 H (35-105) IU/L Creatine Kinase 28 (26-192) U/L Troponin T Baselin e 13 H (0-10) ng/L Troponin T 120 Min [place] (0-10) ng/L Delta Troponin T (0-10) ABS# NT-Pro-B Natriuret Pep 342 (0-450) pg/mL Total Protein 7.3 (6.6-8.7) g/dL Albumin 3.7 (3.5-5.2) g/dL Globulin 3.6 (1.3-4.6) g/dL Urine Color (Yellow) Urine Appearance (CLEAR) Urine pH (5-7) Ur Specific Gravit y (1.005-1.030) Urine Protein (Negative) Urine Glucose (UA) (Normal) Urine Ketones (Negative) Urine Blood (Negative) Urine Nitrate (Negative) Urine Bilirubin (Negative) Urine Urobilinogen (Negative) mg/dL Ur Leukocyte [place] ase (Negative) SARS-CoV-2 Ag (Rap id) (Negative) 02/19/20 02/19/20 02/19/20 Range/Units 13:52 14:03 14:50 WBC (4.0-10.0) 10^3/ uL RBC (4.1-5.3) 10^6/u L Hgb (11.5-15.3) g/dL Hct (37.0-47.0) % MCV (81-99) fL MCH (28.0-34.0) pg MCHC (30.0-36.0) g/dL RDW (12.1-15.1) % Plt Count (130-400) 10^3/c mm MPV (7.4-10.4) fL Neut % (Auto) % Lymph % (Auto) % [place] % (Auto) % Eos % (Auto) % Baso % (Auto) % Neut # (Auto) (1.8-7.7) 10^3/u L Lymph # (Auto) (0.8-4.8) 10^3/u L [place] # (Auto) (0.2-0.9) 10^3/u L Eos # (Auto) (0.0-0.8) 10^3/u L Baso # (Auto) (0.0-0.1) 10^3/u L Nucleated RBC % (a uto) % Nucleated RBCs # /100WBC Specimen Type Arterial Sample Site Brachial, right ABG pH 7.46 H (7.35-7.45) ABG pCO2 33.8 L (35-45) mmHg ABG pO2 71.3 L (80.0-100.0) mmH g ABG HCO3 23.9 (22-26) mmol/L ABG O2 Saturation 96.0 ABG Base Excess 0.3 (-2.0-2.0) mmol/ L Lam[place] Test Pos A-a O2 Gradient 4.7 L (5-10) mmHg Hematocrit 30.2 L (37-47) % Hgb O2 Saturation 93.9 L (95-100) % Carboxyhemoglobin 1.6 (0.4-20.1) %THgb Methemoglobin 0.6 (0.4-1.5) % Total Hemoglobin 9.8 L (12-16) g/dL Ionized Calcium 1.1 (1.1-1.4) mmol/L O2 Delivery Device Room air FiO2 21.0 % Acute Care Nurse ID Amh Sodium 134.0 (136-145) mmol/L Potassium 3.5 (3.5-5.1) mmol/L Chloride (98-107) mmol/L Carbon Dioxide (22-29) mmol/L Anion Gap (5-19) BUN (8-23) mg/dL Creatinine (0.5-0.9) mg/dL GFR Calculation Glucose 182.0 H (65-115) mg/dL Calculated Osmolal ity (285-295) mOsm/k g Calcium (8.5-10.5) mg/dL Total Bilirubin (0.15-1.2) mg/dL AST (0-32) U/L ALT (0-33) U/L Alkaline Phosphata se (35-105) IU/L Creatine Kinase (26-192) U/L Troponin T Baselin e (0-10) ng/L Troponin T 120 Min [place] 12.66 H (0-10) ng/L Delta Troponin T -0.34 L (0-10) ABS# NT-Pro-B Natriuret Pep (0-450) pg/mL Total Protein (6.6-8.7) g/dL Albumin (3.5-5.2) g/dL Globulin (1.3-4.6) g/dL Urine Color Dark yellow (Yellow) Urine Appearance Clear (CLEAR) Urine pH 5 (5-7) Ur Specific Gravit y 1.020 (1.005-1.030) Urine Protein Neg (Negative) Urine Glucose (UA) Norm (Normal) Urine Ketones 1+ H (Negative) Urine Blood Neg (Negative) Urine Nitrate Negative (Negative) Urine Bilirubin Neg (Negative) Urine Urobilinogen 4 H (Negative) mg/dL Ur Leukocyte Mary [place] ase Negative (Negative) SARS-CoV-2 Ag (Rap id) (Negative) 02/19/20 Range/Units 15:40 WBC (4.0-10.0) 10^3/ uL RBC (4.1-5.3) 10^6/u L Hgb (11.5-15.3) g/dL Hct (37.0-47.0) % MCV (81-99) fL MCH (28.0-34.0) pg MCHC (30.0-36.0) g/dL RDW (12.1-15.1) % Plt Count (130-400) 10^3/c mm MPV (7.4-10.4) fL Neut % (Auto) % Lymph % (Auto) % [place] % (Auto) % Eos % (Auto) % Baso % (Auto) % Neut # (Auto) (1.8-7.7) 10^3/u L Lymph # (Auto) (0.8-4.8) 10^3/u L [place] # (Auto) (0.2-0.9) 10^3/u L Eos # (Auto) (0.0-0.8) 10^3/u L Baso # (Auto) (0.0-0.1) 10^3/u L Nucleated RBC % (a uto) % Nucleated RBCs # /100WBC Specimen Type Sample Site ABG pH (7.35-7.45) ABG pCO2 (35-45) mmHg ABG pO2 (80.0-100.0) mmH g ABG HCO3 (22-26) mmol/L ABG O2 Saturation ABG Base Excess (-2.0-2.0) mmol/ L Lamont Test A-a O2 Gradient (5-10) mmHg Hematocrit (37-47) % Hgb O2 Saturation (95-100) % Carboxyhemoglobin (0.4-20.1) %THgb Methemoglobin (0.4-1.5) % Total Hemoglobin (12-16) g/dL Ionized Calcium (1.1-1.4) mmol/L O2 Delivery Device FiO2 % Acute Care Nurse ID Sodium (136-145) mmol/L Potassium (3.5-5.1) mmol/L Chloride (98-107) mmol/L Carbon Dioxide (22-29) mmol/L Anion Gap (5-19) BUN (8-23) mg/dL Creatinine (0.5-0.9) mg/dL GFR Calculation Glucose (65-115) mg/dL Calculated Osmolal ity (285-295) mOsm/k g Calcium (8.5-10.5) mg/dL Total Bilirubin (0.15-1.2) mg/dL AST (0-32) U/L ALT (0-33) U/L Alkaline Phosphata se (35-105) IU/L Creatine Kinase (26-192) U/L Troponin T Baselin e (0-10) ng/L Troponin T 120 Min [place] (0-10) ng/L Delta Troponin T (0-10) ABS# NT-Pro-B Natriuret Pep (0-450) pg/mL Total Protein (6.6-8.7) g/dL Albumin (3.5-5.2) g/dL Globulin (1.3-4.6) g/dL Urine Color (Yellow) Urine Appearance (CLEAR) Urine pH (5-7) Ur Specific Gravit y (1.005-1.030) Urine Protein (Negative) Urine Glucose (UA) (Normal) Urine Ketones (Negative) Urine Blood (Negative) Urine Nitrate (Negative) Urine Bilirubin (Negative) Urine Urobilinogen (Negative) mg/dL Ur Leukocyte Mary Kay ase (Negative) SARS-CoV-2 Ag (Rap id) Negative (Negative) Discharge Plan Discharge Patient Disposition: Admitted As Inpatient Clinical Impression: Cellulitis and abscess of leg, Hypertension, Dementia Condition: Stable Coding Level of Care Code ED [employer] for Curt Fwd Exam Comprehensive
[2020-02-19 13:58] LABS: Alanine Aminotransferase 11 U/L (0-33); Albumin Level 3.7 g/dL (3.5-5.2); Alkaline Phosphatase 114 IU/L (35-105); Aspartate Amino Transferase 12 U/L (0-32); Blood Urea Nitrogen 10 mg/dL (8-23); Calcium 8.6 mg/dL (8.5-10.5); Carbon Dioxide 25 mmol/L (22-29); Chloride 95 mmol/L (98-107); Creatine Phosphokinase 28 U/L (26-192); Globulin 3.6 g/dL (1.3-4.6); Glucose 134 mg/dL (65-115); NT Pro B Type Natriuretic Pept 342 pg/mL (0-450); Osmolality Calculated 281 mOsm/kg (285-295); Sodium 135 mmol/L (136-145); Total Bilirubin 0.6 mg/dL (0.15-1.2); Total Protein 7.3 g/dL (6.6-8.7)
[2020-02-19 14:05] LABS: Add Urine Microscopic? NO
[2020-02-19 14:09] LABS: Bilirubin Urine Neg (Negative); Blood Urine Neg (Negative); Glucose Urine UA Norm (Normal); Ketones Urine 1+ (Negative); Leukocyte Esterase Urine Negative (Negative); Nitrate Urine Negative (Negative); Protein Urine Neg (Negative); Urine Appearance Clear (CLEAR); Urine Color Dark Yellow (Yellow); Urobilinogen Urine 4 mg/dL (Negative); pH Urine 5 (5-7)
[2020-02-19 14:15] LABS: ABG PCO2 33.8 mmHg (35-45); ABG PH Result 7.46 (7.35-7.45); Alveolar-Arterial Oxygen Gradi 4.7 mmHg (5-10); Arterial Blood Gas Hematocrit 30.2 % (37-47); Base Excess ABG 0.3 mmol/L (-2.0-2.0); Blood Gas Allen Test Pos; Blood Gas Operator Identificat AMH; Blood Gas Sample Site Brachial, right; Blood Gas Sample Type Arterial; Carboxyhemoglobin 1.6 %THgb (0.4-20.1); HCO3 ABG 23.9 mmol/L (22-26); HGB O2 Sat 93.9 % (95-100); Ionized Calcium Level - ABG 1.1 mmol/L (1.1-1.4); Methemoglobin 0.6 % (0.4-1.5); Oxygen Device ROOM AIR; PO2 ABG 71.3 mmHg (80.0-100.0); Potassium Level - ABG 3.5 mmol/L (3.5-5.0); Total Hemoglobin 9.8 g/dL (12-16)
--- NOTE | 2020-02-19 14:16 | CT_ITS ---
WS: [id number] CT HEAD TECHNIQUE: Noncontrast CT of the head obtained from the skullbase to the vertex. CLINICAL INFORMATION: AMS COMPARISON: December 29, 2019 DLP: 804.[address] scans at [facility] use at least one of these dose optimization techniques: automat ed exposure control; mA and/or kV adjustment per patient size (includes targeted exams where dose is matched to clinical indication); or iterative reconstruction. FINDINGS: No evidence of intracranial hemorrhage or mass effect. Ventricular system and basal cisterns are marsh nt. Mild small vessel changes with moderate parenchymal volume loss. No extra-axial fluid collections . No evidence of mass or mass effect. Normal recinos-white differentiation. Paranasal sinuses and mastoid air cells are well aerated. .Normal visualized soft tissues. CT/CT head wo con* [id number] IMPRESSION: 1. No evidence of intracranial hemorrhage or mass effect. 2. Mild small vessel changes. Moderate parenchymal volume loss. 3. No acute intracranial findings. No significant interval changes.
--- NOTE | 2020-02-19 14:19 | ECG_ITS ---
[facility] Test Date: 2020-02-19 Pat Name: Anthony Acosta Department: Room: Gender: Female Tester Food Products: : 1935 Requested By: Alessandro Bruce Order Number: [id number] Jonas MD: Chase Garcia M.D. Measurements Intervals [place] Rate: 108 P: SD: QRS: -11 QRSD: 125 T: 8 QT: 318 QTc: 426 Interpretive Statements Sinus tachycardia. Stable right atrial enlargement SEPTAL MYOCARDIAL INFARCTION [40+ ms Q WAVE IN V1/V2], OF INDETERMINATE AGE ST DEPRESSION, CONSIDER SUBENDOCARDIAL INJURY [0.1+ mV ST DEPRESSION] Compared to ECG 12/29/2019 09:52:43 Myocardial infarct finding now present ST (T wave) deviation now present Sinus rhythm no longer present Atrial abnormality no longer present Heavy artifact, need to repeat Electronically Signed On 02-19-2020 22:23:27 CHILD DAY CARE PROVIDER by Chase Garcia M.D. [id number]
[2020-02-19 14:54] LABS: Troponin(5th) Baseline 13 ng/L (0-10)
[2020-02-19 15:19] LABS: Troponin 5 2HR 12.66 ng/L (0-10)
[2020-02-19 15:24] LABS: Troponin 5 2HR Delta -0.34 ABS# (0-10)
--- NOTE | 2020-02-19 16:19 | ECG_ITS ---
[facility] Test Date: 2020-02-19 Pat Name: Anthony Acosta Department: Room: Gender: Female Executive Kitchen Manager: : 1935 Requested By: Alessandro Bruce Order Number: [id number] Jonas MD: Chase Garcia M.D. Measurements Intervals [place] Rate: 104 P: 71 [place]: 154 QRS: 0 QRSD: 70 T: -5 QT: 340 QTc: 449 Interpretive Statements SINUS TACHYCARDIA WITH OCCASIONAL VENTRICULAR PREMATURE COMPLEXES POSSIBLE RIGHT ATRIAL ENLARGEMENT [0.25mV P WAVE] LEFT ATRIAL ENLARGEMENT [-0.15mV P WAVE IN V1/V2] SEPTAL MYOCARDIAL INFARCTION , OF INDETERMINATE AGE [40+ ms Q WAVE IN V1/V2] MODERATE T-WAVE ABNORMALITY, CONSIDER INFERIOR ISCHEMIA [-0.1+ mV T WAVE IN II/aVF] Compared to ECG 02/19/2020 14:54:06 Ventricular premature complex(es) now present Atrial abnormality now present T-wave abnormality now present Possible ischemia now present Myocardial infarct finding still present Electronically Signed On 02-19-2020 22:28:08 SENIOR RESEARCH MANAGER by Chase Garcia M.D. [id number]
[2020-02-19 16:41] LABS: SARS Covid-2 Antigen Negative (Negative)
[2020-02-19] MEDS: vancomycin 1,000 MG in sodium chloride 0.9% 250 ML 250 MG IV (17:18)
--- NOTE | 2020-02-19 18:04 | P.HP_ITS ---
Providers/Chief Complaint Admitting Physician: José Luis Ro Primary Care Provider: Oscar Gillespie MD Chief Complaint: MS CHANGES, RESP History of Present Illness Pleasantly confused 85-year-old lady with dementia, PD, CAD, HLD, HTN, recurrent lower extremity wounds infection, recently treated with course of antibiotic with Levaquin in the beginning of January was brought to the emergency department for assessment due to being less responsive, more confused this morning. Per discussion with skilled nursing staff she is normally ambulating by herself, however, per discussion with her daughter she at baseline does not communicate well due to underlying dementia. Per discussion with skilled nursing her cognitive function, as well as functional capacity started to decline since diagnosis of COVID-19 in November, she had dementia prior to that as well. I was informed of this by [facility] at the skilled nursing as RN has not been available. Per her daughter, however, her dementia started progressing even before that, she states starting at the time when assisted living went on lockdown due to the pandemic. In ER she is noted to have leukocytosis, sinus tachycardia, suspected sepsis, with suspected source from ulcerations/wounds on lower extremities, particularly right lower extremity with larger ulceration on anteromedial mid martínez, and a smaller ulceration on medial malleolus. She also has additional ulceration on lateral left bicep. In ER she started on vancomycin after cultures obtained. Her daughter is at bedside. Patient appears currently more alert, and per daughter she is currently at baseline mental status. Per her daughter she picks at everything including her skin, any bandages, IV, or anything else in her vicinity. Review of Systems General: Reports: Other (She provides extremely normal review of systems. ) Const: Denies: fever(s) Card: Denies: chest pain Resp: Denies: dyspnea GI: Denies: abdominal pain Skin/Breast: Denies: rash, sores or new lesions Neuro: Denies: confusion Medications/Allergies Home Medications Medication Instructions Recorded Confirmed Last Taken Type albuterol sulfate 90 mcg/actuation 2 puff INHALATION QID PRN 03/28/19 02/19/20 Unknown History aerosol inhaler nitroglycerin 0.4 mg sublingual 0.4 mg SUBLINGUAL Q5M PRN 03/28/19 02/19/20 Unknown History tablet aspirin 81 mg tablet,delayed 81 mg PO Q2D tab 04/03/19 02/19/2020 History release nebulizer accessories #1 each 05/15/19 02/19/20 Unknown Rx nebulizers #1 each 05/15/19 02/19/20 Unknown Rx umeclidinium 62.5 mcg/actuation 1 inh INHALATION DAILY #30 each 10/16/19 02/19/20 02/19/20 Rx blister powder for inhalation metoprolol tartrate 25 mg tablet 12.5 mg PO BID #90 tab 11/23/19 02/19/20 02/19/20 Rx cetirizine 5 mg-pseudoephedrine ER 1 tab PO DAILY #24 tab 02/06/20 02/19/20 Unknown Rx 120 mg tablet,extended release,12hr Culturelle 1 tab PO PRN PRN 02/19/20 02/19/20 Unknown History Milk of Magnesia See Rx Instructions .ROUTE .COMPLEX 02/19/20 02/19/20 Unknown History Natural Tears See Rx Instructions .ROUTE .COMPLEX 02/19/20 02/19/20 Unknown History acetaminophen 325 - 650 mg PO Q4H PRN 02/19/20 02/19/20 Unknown History albuterol sulfate [Ventolin HFA] 2 puff INHALATION Q2H PRN 02/19/20 02/19/20 Unknown History bisacodyl [Dulcolax (bisacodyl)] 10 mg CA DAILY PRN 02/19/20 02/19/20 Unknown History hydrocodone-acetaminophen 1 tab PO Q6H PRN 02/19/20 02/19/20 Unknown History ipratropium bromide 1 spray INTRANASAL BID 02/19/20 02/19/20 02/19/20 History simvastatin 40 mg PO DAILY 02/19/20 02/19/20 02/19/20 History Allergies Allergy/AdvReac Type Severity Reaction Status Date / Time Sulfa (Sulfonamide Allergy Unknown Unknown Verified 05/14/19 13:14 Antibiotics) PFSH Acute PFSH: Medical History (Updated 02/19/20 @ 18:33 by José Luis Ro MD) CAD (coronary artery disease) COPD (chronic obstructive pulmonary disease) History of inferior wall myocardial infarction Hyperlipidemia Hypertension Squamous cell carcinoma of left upper extremity Surgical History History of appendectomy (~1940) History of coronary artery stent placement History of hysterectomy (~1982) History of repair of right rotator cuff (~2013) Family History Denies family history of Anesthesia complication Bleeding disorder Social History Smoking and tobacco status: former smoker Quit status (tobacco): has quit using tobacco Year quit tobacco: 3 Second hand smoke exposure: No Alcohol intake: never Desire information about alcohol rehabilitation?: No Counseling given: No Desire information about substance/drug rehabilitation?: No Counseling given: No Adopted: No Caregiver/support person: No Lives independently: Yes Housing: House Marital status: / Highest education level completed: High School Graduate Current occupational status: retired Current occupational exposures/hazards: No Pets and animals: No History of recent travel: No Current gender identity: Female Ashlee/Sabianist: Rastafarian Special ashlee needs: No Financial difficulty paying for basics: Decline to Answer Vitals/I&O/Wt Last Vital Signs Temp 97.9 F 02/19/20 12:58 Pulse 105 H 02/19/20 17:53 Resp 16 02/19/20 17:53 BP 120/97 02/19/20 17:53 Pulse Ox 100 02/19/20 17:53 Weight last 48 hrs Weight 45.359 kg Physical Exam Const: COMMON NORMALS: no acute distress; negative for patient oriented x3 GENERAL APPEARANCE: cooperative and frail appearing ORIENTATION/CONSCIOUSNESS: Yes confused OTHER: Daughter at bedside. HENMT: COMMON NORMALS: oropharynx normal Neck/C-Spine: COMMON NORMALS: no JVD Resp: COMMON NORMALS: normal respiratory effort and clear to auscultation bilaterally AUSCULTATION: clear to auscultation bilaterally Cardio: COMMON NORMALS: no JVD, regular rhythm, S1 normal heart sound present, S2 normal heart sound present and No murmurs present (Cardio) RHYTHM: regular rhythm HEART SOUNDS: S1 normal heart sound present and S2 normal heart sound present GI: COMMON NORMALS: Normal to inspection, nondistended, normoactive bowel sounds present, Soft to palpation and non-tender PALPATION: Yes Soft to palpation Extremity: COMMON NORMALS: no joint enlargement and no pedal edema Neuro: COMMON NORMALS: patient oriented x3 and moves all extremities Skin: LESIONS: lesion noted (ulecrations with purulent discharge on anteromedial left martínez, med malleolu) OTHER: Additional shallow ulceration on lateral L bicep after a skin tear with surrounding erythema. Data : 02/19/20 12:39 02/19/20 12:39 Micro: Microbiology 02/19/20 16:00 Blood Culture - Preliminary Blood SPECIMEN COLLECTED 02/19/20 14:50 Blood Culture - Preliminary Blood SPECIMEN COLLECTED A&P Assessment and plan (1) Sepsis: Sepsis with leukocytosis 25.7, sinus tachycardia. She is afebrile. No respiratory complaints. Source of sepsis is due to wounds, including right lower extremity ulcerations and surrounding cellulitis, with purulent discharge, as well as left lateral bicep wound. Prescription skilled nursing patient unfortunately does not allow well for dressing changes, takes off any dressings. She had undergone previously treatment with Levaquin back in beginning of January. Currently started on vancomycin. Request for wound cultures. We will add cefepime for now empirically due to sepsis with recurrence of infection after recent treatment. Status: Acute (2) Cellulitis and abscess of leg: As above. Wound care requested. Status: Acute (3) Dementia: With progressive decline recently. Arrangements underway by assisted living to try to get her placed to [facility], although this has been limited due to the pandemic. Status: Acute Additional A&P Information Recent COVID-19 positive status. No respiratory or other suggestive symptoms currently. Rapid antigen negative. COPD: Currently not in exacerbation HLD HTN Attestations Medical Necessity Statement*: Admission of over 2 midnights is admitted for assessment management of sepsis secondary to wound infection, cellulitis. Coding Level of Care Code Acute Road Supervisor Of [employer] for [facility] Fwd Diagnoses Sepsis A41.9 Cellulitis and abscess of leg L03.119; L02.419 Dementia F03.90
[2020-02-19 19:38] LABS: Troponin 5 6HR 12.66 ng/L (0-10)
[2020-02-19 19:56] LABS: Troponin 5 6HR Delta -0.34 ng/L (0-12)
[2020-02-19] MEDS: metoprolol tartrate 25 mg Tablet 12.5 MG PO (20:04)
[2020-02-19] MEDS: aspirin 81 mg EC Tablet PO (20:05)
[2020-02-19] MEDS: sodium chloride 0.9% 1,000 ML 100 ML IV (20:05)
[2020-02-19] MEDS: heparin 5,000 unit/mL INJ 1 mL 5000 UNIT SUBCUT (20:05)
[2020-02-19] MEDS: cefepime 2,000 MG in sodium chloride 0.9% (plus) 50 ML 100 MG IV (20:13)
[2020-02-19] MEDS: albuterol 8 gm MDI 2 PUFF INHALATION (20:16)
[2020-02-20] VITALS (9 sets, daily range): BP systolic 125–158; BP diastolic 60–93; PULSE 79–102; RESP 16–18; TEMP 36.6–37.2; O2SAT 91–95
[2020-02-20] MEDS: heparin 5,000 unit/mL INJ 1 mL 5000 UNIT SUBCUT ×3 (03:39→17:57)
[2020-02-20 05:33] LABS: Basophils % 0.1 %; Hematocrit 27.4 % (37.0-47.0); Hemoglobin 8.2 g/dL (11.5-15.3); Lymphocytes # 0.6 10^3/uL (0.8-4.8); Lymphocytes % 3.5 %; Mean Corpuscular HGB Conc 29.9 g/dL (30.0-36.0); Mean Corpuscular Hemoglobin 25.7 pg (28.0-34.0); Mean Corpuscular Volume 85.9 fL (81-99); Mean Platelet Volume 10.2 fL (7.4-10.4); Monocytes # 0.7 10^3/uL (0.2-0.9); Neutrophils # 16.92 10^3/uL (1.8-7.7); Neutrophils % 91.7 %; Nucleated Red Blood Cells % 0 %; Platelet Count 259 10^3/cmm (130-400); Red Blood Count 3.19 10^6/uL (4.1-5.3); Red Cell Distribution Width 17.7 % (12.1-15.1); White Blood Count 18.5 10^3/uL (4.0-10.0)
[2020-02-20 05:54] LABS: Alanine Aminotransferase 7 U/L (0-33); Albumin Level 2.8 g/dL (3.5-5.2); Alkaline Phosphatase 78 IU/L (35-105); Anion Gap 12.1 (5-19); Aspartate Amino Transferase 10 U/L (0-32); Blood Urea Nitrogen 12 mg/dL (8-23); Calcium 8.3 mg/dL (8.5-10.5); Carbon Dioxide 26 mmol/L (22-29); Chloride 102 mmol/L (98-107); Globulin 2.5 g/dL (1.3-4.6); Glucose 137 mg/dL (65-115); Osmolality Calculated 284 mOsm/kg (285-295); Potassium 4.1 mmol/L (3.5-5.1); Sodium 136 mmol/L (136-145); Total Bilirubin 0.4 mg/dL (0.15-1.2); Total Protein 5.3 g/dL (6.6-8.7)
[2020-02-20] MEDS: atorvastatin 40 mg Tablet 20 MG PO (08:17)
[2020-02-20] MEDS: metoprolol tartrate 25 mg Tablet 12.5 MG PO ×2 (08:17→17:34)
[2020-02-20] MEDS: sodium chloride 0.9% 1,000 ML 100 ML IV ×2 (10:27→20:38)
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
[2020-02-20] MEDS: vancomycin 750 MG in sodium chloride 0.9% 250 ML 250 MG IV (17:34)
--- NOTE | 2020-02-20 17:54 | PC.NURSE ---
pt refusing bandage on L upper arm. attempted to reapply bandage and provide education, pt still refusing. Dr. Ro notified
--- NOTE | 2020-02-20 19:23 | PM.PN ---
Subjective Subjective: Interval history: Today she was intermittently quite restless, biting nursing staff taking of her dressings, not keeping the dressing on on the left upper arm, trying to pull out her IV, and one-to-one sitter had to be requested. She was calmer during my visit earlier in the morning, at which time denied any pain or discomfort. Vitals/I&O/Wt Last Vital Signs Temp 98.0 F 02/20/20 14:47 Pulse 86 02/20/20 14:47 Resp 16 02/20/20 14:47 BP 130/60 02/20/20 17:00 Pulse Ox 94 02/20/20 14:47 02/20/20 02/20/20 02/20/20 06:59 14:59 22:59 Intake Total 1050 / 1050 120 / 1170 Output Total 100 / 100 Balance 950 / 950 120 / 1070 Weight last 48 hrs Weight 43.998 kg Weight 45.359 kg Physical Exam Const: COMMON NORMALS: no acute distress; negative for patient oriented x3 GENERAL APPEARANCE: cooperative and frail appearing ORIENTATION/CONSCIOUSNESS: Yes confused HENMT: COMMON NORMALS: oropharynx normal Neck/C-Spine: COMMON NORMALS: no JVD Resp: COMMON NORMALS: normal respiratory effort and clear to auscultation bilaterally AUSCULTATION: clear to auscultation bilaterally Cardio: COMMON NORMALS: no JVD, regular rhythm, S1 normal heart sound present, S2 normal heart sound present and No murmurs present (Cardio) RHYTHM: regular rhythm HEART SOUNDS: S1 normal heart sound present and S2 normal heart sound present GI: COMMON NORMALS: Normal to inspection, nondistended, normoactive bowel sounds present, Soft to palpation and non-tender PALPATION: Yes Soft to palpation Extremity: COMMON NORMALS: no joint enlargement and no pedal edema Neuro: COMMON NORMALS: moves all extremities; negative for patient oriented x3 Skin: LESIONS: lesion noted (Ulcerations appear better. With dressings no purulence noted today.) OTHER: Additional shallow ulceration on lateral L bicep after a skin tear with surrounding erythema. Data : 02/20/20 04:45 02/20/20 04:45 Micro: Microbiology 02/20/20 11:15 Gram Stain - Final Ankle - Right 02/19/20 16:00 Blood Culture - Preliminary Blood Gram positive cocci 02/19/20 14:50 Blood Culture - Preliminary Blood NEGATIVE TO DATE 02/20/20 10:00 Blood Culture - Preliminary Blood SPECIMEN COLLECTED 02/20/20 09:54 Blood Culture - Preliminary Blood SPECIMEN COLLECTED A&P Assessment and plan (1) Sepsis: Sepsis is better. Leukocytosis better. Tachycardia improved. Possible gram-positive bacteremia with 2 bottles/4 gram-positive cocci from blood culture 02/18. Recultured. Continue empiric antibiotics. Follow blood cultures. Will request CRP. TTE. Source of sepsis is due to wounds, including right lower extremity ulcerations and surrounding cellulitis, with purulent discharge, as well as left lateral bicep wound. Prescription longterm patient unfortunately does not allow well for dressing changes, takes off any dressings. She had undergone previously treatment with Levaquin back in beginning of January. Status: Acute (2) Cellulitis and abscess of leg: As above. Wound care as she will allow since she is pretty adamant about removing anything and everything that may be attached to her. Status: Acute (3) Dementia: With delirium, can encephalopathy on presentation, this was slightly better this morning, however, subsequently agitated again in the afternoon. Required one-to-one sitter. With progressive decline recently. Arrangements underway by assisted living to try to get her placed to retirement facility, although this has been limited due to the pandemic. Status: Acute Additional A&P Information Recent COVID-19 positive status. No respiratory or other suggestive symptoms currently. Rapid antigen negative. COPD: Currently not in exacerbation HLD HTN Attestations Medical Necessity Statement*: Continue admission for assessment management of sepsis, wound infection, possible gram-positive bacteremia. Coding Level of Care Code Acute Jet Piercer Operator for [facility] Diagnoses Sepsis A41.9 Cellulitis and abscess of leg L03.119; L02.419 Dementia F03.90
[2020-02-21] VITALS (8 sets, daily range): BP systolic 138–163; BP diastolic 75–83; PULSE 75–88; RESP 17–24; TEMP 36.5–36.9; O2SAT 89–94
[2020-02-21] MEDS: cefepime 2,000 MG in sodium chloride 0.9% (plus) 50 ML 100 MG IV (00:21)
[2020-02-21] MEDS: heparin 5,000 unit/mL INJ 1 mL 5000 UNIT SUBCUT ×3 (02:34→18:23)
[2020-02-21 05:23] LABS: Basophils % 0.1 %; Hematocrit 27.1 % (37.0-47.0); Hemoglobin 8.1 g/dL (11.5-15.3); Lymphocytes # 0.6 10^3/uL (0.8-4.8); Lymphocytes % 4.4 %; Mean Corpuscular HGB Conc 29.9 g/dL (30.0-36.0); Mean Corpuscular Hemoglobin 25.7 pg (28.0-34.0); Mean Platelet Volume 10.7 fL (7.4-10.4); Monocytes # 0.9 10^3/uL (0.2-0.9); Monocytes % 6.6 %; Neutrophils # 11.57 10^3/uL (1.8-7.7); Neutrophils % 88.3 %; Nucleated Red Blood Cells % 0 %; Platelet Count 232 10^3/cmm (130-400); Red Blood Count 3.15 10^6/uL (4.1-5.3); Red Cell Distribution Width 17.9 % (12.1-15.1); White Blood Count 13.1 10^3/uL (4.0-10.0)
[2020-02-21 05:57] LABS: Alanine Aminotransferase 10 U/L (0-33); Albumin Level 2.5 g/dL (3.5-5.2); Alkaline Phosphatase 78 IU/L (35-105); Anion Gap 13.6 (5-19); Aspartate Amino Transferase 14 U/L (0-32); Blood Urea Nitrogen 14 mg/dL (8-23); Calcium 8.1 mg/dL (8.5-10.5); Carbon Dioxide 24 mmol/L (22-29); Chloride 102 mmol/L (98-107); Globulin 2.8 g/dL (1.3-4.6); Glucose 91 mg/dL (65-115); Osmolality Calculated 282 mOsm/kg (285-295); Potassium 3.6 mmol/L (3.5-5.1); Sodium 136 mmol/L (136-145); Total Bilirubin 0.3 mg/dL (0.15-1.2); Total Protein 5.3 g/dL (6.6-8.7)
[2020-02-21] MEDS: sodium chloride 0.9% 1,000 ML 100 ML IV (08:08)
--- NOTE | 2020-02-21 08:17 | PC.NURSE ---
pt refusing PO meds. notified Dr. Ro. no new orders received.
--- NOTE | 2020-02-21 09:31 | PM.PN ---
Subjective Subjective: Interval history: Denies any complaints, although when questioned about her breathing seems to think it may not be the best. Denies chest pain. Vitals/I&O/Wt Last Vital Signs Temp 97.9 F 02/21/20 07:27 Pulse 88 02/21/20 07:54 Resp 18 02/21/20 07:54 BP 163/83 02/21/20 07:27 Pulse Ox 94 02/21/20 07:54 02/20/20 02/21/20 02/21/20 22:59 06:59 14:59 Intake Total 1120 / 2170 950 / 3120 300 / 300 Balance 1120 / 2070 950 / 3020 300 / 300 Weight last 48 hrs Weight 43.817 kg Weight 43.998 kg Weight 45.359 kg Physical Exam Const: COMMON NORMALS: no acute distress; negative for patient oriented x3 GENERAL APPEARANCE: cooperative and frail appearing ORIENTATION/CONSCIOUSNESS: Yes confused HENMT: COMMON NORMALS: oropharynx normal Neck/C-Spine: COMMON NORMALS: no JVD Resp: COMMON NORMALS: normal respiratory effort AUSCULTATION: diminished lung sounds Cardio: COMMON NORMALS: no JVD, regular rhythm, S1 normal heart sound present, S2 normal heart sound present and No murmurs present (Cardio) RHYTHM: regular rhythm HEART SOUNDS: S1 normal heart sound present and S2 normal heart sound present GI: COMMON NORMALS: Normal to inspection, nondistended, normoactive bowel sounds present, Soft to palpation and non-tender PALPATION: Yes Soft to palpation Extremity: COMMON NORMALS: no joint enlargement and no pedal edema Neuro: COMMON NORMALS: moves all extremities; negative for patient oriented x3 Skin: LESIONS: lesion noted (Healing wound on LUE. LE wound without purulence today. No surrounding talya) OTHER: Additional shallow ulceration on lateral L bicep after a skin tear with surrounding erythema. Data : 02/21/20 04:38 02/21/20 04:38 Micro: Microbiology 02/20/20 11:15 Gram Stain - Final Ankle - Right 02/19/20 16:00 Blood Culture - Preliminary Blood Gram positive cocci 02/19/20 14:50 Blood Culture - Preliminary Blood NEGATIVE TO DATE 02/20/20 10:00 Blood Culture - Preliminary Blood SPECIMEN COLLECTED 02/20/20 09:54 Blood Culture - Preliminary Blood SPECIMEN COLLECTED A&P Assessment and plan (1) Sepsis: Sepsis is better. Leukocytosis better. Tachycardia improved. Possible gram-positive bacteremia with 2 bottles/4 gram-positive cocci from blood culture 02/18. Recultured. Continue empiric antibiotics. Follow blood cultures. Evated CRP. Requested TTE. Follow repeat culture. Discussed w daughter. Source of sepsis is due to wounds, including right lower extremity ulcerations and surrounding cellulitis, with purulent discharge, as well as left lateral bicep wound. Prescription [facility] patient unfortunately does not allow well for dressing changes, takes off any dressings. She had undergone previously treatment with Levaquin back in beginning of January. Status: Acute (2) Cellulitis and abscess of leg: As above. Wound care as she will allow since she is pretty adamant about removing anything and everything that may be attached to her. Status: Acute (3) Dementia: With delirium, can encephalopathy on presentation, this was slightly better this morning, however, subsequently agitated again in the afternoon. Required one-to-one sitter. With progressive decline recently. Arrangements underway by assisted living to try to get her placed to assisted facility, although this has been limited due to the pandemic. Status: Acute Additional A&P Information Recent COVID-19 positive status. No respiratory or other suggestive symptoms currently. Rapid antigen negative. COPD: Currently not in exacerbation HLD HTN Attestations Medical Necessity Statement*: Continue treatment for wound infection and work up for possible gram positive sepsis and bacteremia. Coding Level of Care Code Acute Information Manager for [facility] Fwd Diagnoses Sepsis A41.9 Cellulitis and abscess of leg L03.119; L02.419 Dementia F03.90
--- NOTE | 2020-02-21 09:53 | PC.RESP ---
PULMONARY REHAB INFORMATION SENT TO PATIENT.
--- NOTE | 2020-02-21 11:31 | PC.NURSE ---
Patient refused BELL CAPTAIN to take blood pressure, but allowed for all other vital signs to be taken. Nurse notified.
[2020-02-21 18:13] LABS: Vancomycin Trough < 4.0 ug/mL (10-15)
[2020-02-21] MEDS: metoprolol tartrate 25 mg Tablet 12.5 MG PO (18:24)
[2020-02-21] MEDS: aspirin 81 mg EC Tablet PO (18:24)
[2020-02-21] MEDS: vancomycin 750 MG in sodium chloride 0.9% 250 ML 250 MG IV (18:33)
--- NOTE | 2020-02-21 19:27 | USCV_ITS ---
Anthony Acosta Age: 85 Gender: F : 1935 Exam Date: 02/21/2020 10:33 Ordering Phys: José Luis Ro MD Technologist: Elissa Ventura Exam Location: [facility] [place] Indication: POSSIBLE GRAM POSITIVE BACTEREMIA BP: 138 / 76 HR: 100 Rhythm: Sinus Technical Quality: MEASUREMENTS (Male / Female) Normal Values 2D ECHO LV Diastolic Diameter PLAX 3.0 cm 4.2 - 5.9 / 3.9 - 5.3 cm LV Systolic Diameter PLAX 2.0 cm LV Chamber Size 2.7 cm IVS Diastolic Thickness 0.9 cm 0.6 - 1.0 / 0.6 - 0.9 cm IVS Systolic Thickness 1.1 cm LVPW Diastolic Thickness 1.1 cm 0.6 - 1.0 / 0.6 - 0.9 cm LVPW Systolic Thickness 1.5 cm RV Chamber Size 2.1 cm LVOT Diameter 2.1 cm LV Ejection Fraction 2D Teich 64.0 % LV Ejection Fraction MOD 2C 68.0 % LV Ejection Fraction 2C AL 74.5 % LA Diameter 2.1 cm LA Width 2.9 cm LA Height 2.7 cm RA Width 3.0 cm RA Height 3.3 cm Aorta at Sinotubular Diameter 3.0 cm M-MODE LV Diastolic Diameter MM 3.0 cm 4.2 - 5.9 / 3.9 - 5.3 cm LV Systolic Diameter MM 2.1 cm LV Ejection Fraction MM Teich 60.3 % IVS Diastolic Thickness MM 0.6 cm 0.6 - 1.0 / 0.6 - 0.9 cm IVS Systolic Thickness MM 1.2 cm LVPW Diastolic Thickness MM 1.2 cm 0.6 - 1.0 / 0.6 - 0.9 cm LVPW Systolic Thickness MM 1.3 cm RV Diastolic Diameter MM 1.4 cm Aortic Annulus Diameter 2.0 cm LA Ao Ratio MM 1.2 MV E Point Septal Separation 0.4 cm DOPPLER AV Peak Velocity 138.0 cm/s LVOT Peak Velocity 104.0 cm/s AV Area Cont Eq vti 2.7 cm squared AV Area Cont Eq pk 2.5 cm squared MV Area PHT 5.4 cm squared Mitral E to A Ratio 0.8 MV E' Velocity 63.0 cm/s Mitral E to MV E' Ratio 9.5 Mitral E to LV E' Lateral Ratio 9.7 Mitral E to LV E' Septal Ratio 9.3 TR Peak Velocity 336.6 cm/s TR Peak Gradient 45.3 mmHg TR Mean Velocity 235.6 cm/s TR Mean Gradient 25.6 mmHg TR Velocity Time Integral 85.2 cm TV Peak E Velocity 73.0 cm/s Right Atrial Pressure 3.0 mmHg Pulmonary Artery Systolic Pressu 48.3 mmHg PV Peak Velocity 87.0 cm/s RV Acceleration Time 0.1 s RV Ejection Time 0.3 s RV AcT/ET 0.4 FINDINGS Left Ventricle Normal left ventricular size and systolic function, EF 61 %. No regional wall motion abnormalities. Grade I/IV diastolic dysfunction (abnormal relaxation filling pattern), normal to mildly elevated filling pressures. Right Ventricle The right ventricle is normal in size and function. Right Atrium The right atrium is normal in size. Left Atrium The left atrium is normal in size. Mitral Valve Thickened mitral valve. Trace mitral valve regurgitation. Aortic Valve Thickened aortic valve. Tricuspid Valve [id number] tricuspid valve regurgitation. Mild pulmonary hypertension with an estimated pulmonary artery peak systolic pressure of 48 mmHg Pulmonic Valve Pulmonic valve not well visualized. Pericardium Normal pericardium without effusion. Aorta Normal ascending aorta dimension. CONCLUSIONS Normal left ventricular size and systolic function, EF 61 %. No regional wall motion abnormalities. Grade I/IV diastolic dysfunction (abnormal relaxation filling pattern), normal to mildly elevated filling pressures. Thickened mitral valve. Trace mitral valve regurgitation. [id number] tricuspid valve regurgitation. Mild pulmonary hypertension with an estimated pulmonary artery peak systolic pressure of 48 mmHg There is no pericardial effusion. There are no intracardiac masses. No previous study is available for comparison. Dr Chase Garcia MD [facility] (Electronically Signed) Final Date: 21 February 2020 21:00 S
[2020-02-21] MEDS: ipratropium-albuterol 3 mL Neb INHALATION (21:26)
[2020-02-22] VITALS (11 sets, daily range): BP systolic 142–166; BP diastolic 71–88; PULSE 60–85; RESP 17–20; TEMP 36.2–36.5; O2SAT 90–97
[2020-02-22] MEDS: cefepime 2,000 MG in sodium chloride 0.9% (plus) 50 ML 100 MG IV (00:36)
[2020-02-22] MEDS: heparin 5,000 unit/mL INJ 1 mL 5000 UNIT SUBCUT ×3 (01:57→17:47)
[2020-02-22] MEDS: vancomycin 750 MG in sodium chloride 0.9% 250 ML 250 MG IV ×2 (03:52→14:03)
[2020-02-22 05:39] LABS: Hemoglobin 8.3 g/dL (11.5-15.3); Lymphocytes # 0.7 10^3/uL (0.8-4.8); Lymphocytes % 12.1 %; Mean Corpuscular HGB Conc 29.6 g/dL (30.0-36.0); Mean Corpuscular Hemoglobin 25.4 pg (28.0-34.0); Mean Corpuscular Volume 85.6 fL (81-99); Mean Platelet Volume 10.6 fL (7.4-10.4); Monocytes # 0.4 10^3/uL (0.2-0.9); Monocytes % 6.7 %; Neutrophils # 4.93 10^3/uL (1.8-7.7); Neutrophils % 80.5 %; Nucleated Red Blood Cells % 0 %; Platelet Count 247 10^3/cmm (130-400); Red Blood Count 3.27 10^6/uL (4.1-5.3); Red Cell Distribution Width 17.3 % (12.1-15.1); White Blood Count 6.1 10^3/uL (4.0-10.0)
[2020-02-22 06:00] LABS: Alanine Aminotransferase 10 U/L (0-33); Albumin Level 2.6 g/dL (3.5-5.2); Alkaline Phosphatase 76 IU/L (35-105); Anion Gap 10.3 (5-19); Aspartate Amino Transferase 15 U/L (0-32); Blood Urea Nitrogen 9 mg/dL (8-23); Carbon Dioxide 27 mmol/L (22-29); Chloride 102 mmol/L (98-107); Globulin 2.7 g/dL (1.3-4.6); Glucose 85 mg/dL (65-115); Osmolality Calculated 280 mOsm/kg (285-295); Potassium 3.3 mmol/L (3.5-5.1); Sodium 136 mmol/L (136-145); Total Bilirubin 0.3 mg/dL (0.15-1.2); Total Protein 5.3 g/dL (6.6-8.7)
[2020-02-22] MEDS: atorvastatin 40 mg Tablet 20 MG PO (08:00)
[2020-02-22] MEDS: metoprolol tartrate 25 mg Tablet 12.5 MG PO ×2 (08:00→17:46)
[2020-02-22] MEDS: haloperidol inj 5 mg/mL INJ 1 mL 1 MG IM (08:04)
[2020-02-22] MEDS: ipratropium-albuterol 3 mL Neb INHALATION ×2 (08:53→20:03)
--- NOTE | 2020-02-22 12:19 | PC.SOCIAL ---
IMM Page 2 of [facility] explained to patient's daughter Gretta by phone. She verbalizes understanding. Initialed, dated, and timed and placed in chart. Copy provided to patient's bedside.
--- NOTE | 2020-02-22 18:38 | PC.NURSE ---
Daughter Gretta Glynn has called and said if her mom couldn't go to [facility] then she would like to try [facility] if possible, she said she doesn't think there are a lot of options. tomorrow 02/23/20 Gretta said she will be in [place] most of the day and to call her cell # [phone] for anything.
--- NOTE | 2020-02-22 20:42 | P.PN_ITS ---
Subjective Subjective: Interval history: She is awake, appears calm, however, had received Haldol earlier due to agitated behavior. Does not have pain. Had a small skin tear earlier with some bleeding in the left leg. Reported picking at all of her scabs per nursing staff. One-to-one sitter has been required to maintain IV in place, dressings on her leg, and for her to stay in bed and in her room. Vitals/I&O/Wt Last Vital Signs Temp 97.7 F 02/22/20 19:32 Pulse 64 02/22/20 20:10 Resp 17 02/22/20 20:03 BP 166/88 02/22/20 19:32 Pulse Ox 94 02/22/20 20:03 02/22/20 02/22/20 02/22/20 06:59 14:59 22:59 Intake Total 250 / 550 120 / 120 Output Total 500 / 875 Balance -250 / -325 120 / 120 Weight last 48 hrs Weight 40.279 kg Weight 43.817 kg Physical Exam Const: COMMON NORMALS: no acute distress; negative for patient oriented x3 GENERAL APPEARANCE: frail appearing; not cooperative ORIENTATION/CONSCIOUSNESS: Yes awake and Yes confused HENMT: COMMON NORMALS: oropharynx normal Neck/C-Spine: COMMON NORMALS: no JVD Resp: COMMON NORMALS: normal respiratory effort AUSCULTATION: diminished lung sounds Cardio: COMMON NORMALS: no JVD, regular rhythm, S1 normal heart sound present, S2 normal heart sound present and No murmurs present (Cardio) RHYTHM: regular rhythm HEART SOUNDS: S1 normal heart sound present and S2 normal heart sound present GI: COMMON NORMALS: Normal to inspection, nondistended, normoactive bowel sounds present, Soft to palpation and non-tender PALPATION: Yes Soft to palpation Extremity: COMMON NORMALS: no joint enlargement and no pedal edema Neuro: COMMON NORMALS: moves all extremities; negative for patient oriented x3 Skin: LESIONS: lesion noted (Healing wound on LUE. LE wound without purulence today. No surrounding talya) OTHER: Additional shallow ulceration on lateral L bicep after a skin tear with surrounding erythema. Data : 02/22/20 04:58 02/22/20 04:58 Micro: Microbiology 02/19/20 16:00 Blood Culture - Preliminary Blood Staphylococcus aureus Strep pyogenes (grp a) 02/20/20 11:15 Gram Stain - Final Ankle - Right Wound Culture - Preliminary Staphylococcus aureus 02/21/20 21:20 Blood Culture - Preliminary Blood SPECIMEN COLLECTED 02/21/20 21:15 Blood Culture - Preliminary Blood SPECIMEN COLLECTED A&P Assessment and plan (1) Sepsis: For now we will continue IV antibiotics if she will allow and follow-up on additional culture results and sensitivities. Continue wound care. We had a detailed long discussion with her daughter with regards to findings on laboratory work-up. We are growing Staph aureus from the wound, but also staph aureus and strep pyogenous from blood culture on admission. Unfortunately her condition has been such that she has barely allowed us to infuse IV antibiotics, and has required one-to-one sitter to just keep the IV in place, keep her dressing, and prevent her from getting out of bed, and out of her room. She continuously picks at her skin, any scabs that may be there. It is only a matter of time before she develops new skin tears, new skin ulcerations and infections. We discussed additional testing and management that would be performed under usual conditions, including ADELA, additional imaging for pockets of infection, as well as antibiotic therapy for gram-positive coccal bacteremia. TTE had showed a thickened mitral valve, unfortunately not helpful. With unfortunately her now advanced dementia, poor quality of life, as well as very poor compliance with therapy putting her through an extensive work-up may actually be risky. As well as would be very risky for her to try to maintain an IV or PICC line over at the residential home she is at. Daughter will be working with case coordination with regards to further goals of care and disposition options. Source of sepsis is due to wounds, including right lower extremity ulcerations and surrounding cellulitis, with purulent discharge, as well as left lateral bicep wound. Status: Acute (2) Cellulitis and abscess of leg: As above. Wound care as she will allow since she is pretty adamant about removing anything and everything that may be attached to her. Status: Acute (3) Dementia: With delirium, can encephalopathy on presentation, this was slightly better this morning, however, subsequently agitated again in the afternoon. Required one-to-one sitter. With progressive decline recently. Arrangements underway by assisted living to try to get her placed to long term facility, although this has been limited due to the pandemic. Status: Acute Additional A&P Information Recent COVID-19 positive status. No respiratory or other suggestive symptoms currently. Rapid antigen negative. COPD: Currently not in exacerbation HLD HTN Continue IV antibiotics for treatment of sepsis with gram-positive bacteremia. Goals of care discussion. Disposition planning. Attestations Medical Necessity Statement*: Continue admission for assessment management of sepsis, gram-positive bacteremia, discussions of goals of care and disposition jacob irizarry. Coding Level of Care Code Acute Electronics Specialist for [facility] Fwd Diagnoses Sepsis A41.9 Cellulitis and abscess of leg L03.119; L02.419 Dementia F03.90
[2020-02-23] VITALS (9 sets, daily range): BP systolic 159–188; BP diastolic 79–89; PULSE 67–85; RESP 17–20; TEMP 36.3–36.7; O2SAT 92–96
[2020-02-23] MEDS: cefepime 2,000 MG in sodium chloride 0.9% (plus) 50 ML 100 MG IV (00:28)
[2020-02-23 03:00] LABS: Vancomycin Trough 8.9 ug/mL (10-15)
[2020-02-23] MEDS: vancomycin 750 MG in sodium chloride 0.9% 250 ML 250 MG IV ×2 (03:21→14:17)
[2020-02-23] MEDS: heparin 5,000 unit/mL INJ 1 mL 5000 UNIT SUBCUT ×3 (03:21→17:55)
[2020-02-23 05:03] LABS: Basophils % 0.3 %; Hemoglobin 8.9 g/dL (11.5-15.3); Lymphocytes # 0.7 10^3/uL (0.8-4.8); Lymphocytes % 17.3 %; Mean Corpuscular HGB Conc 29.7 g/dL (30.0-36.0); Mean Corpuscular Volume 84.3 fL (81-99); Monocytes # 0.3 10^3/uL (0.2-0.9); Monocytes % 7.5 %; Neutrophils # 2.99 10^3/uL (1.8-7.7); Neutrophils % 74.6 %; Nucleated Red Blood Cells % 0 %; Platelet Count 255 10^3/cmm (130-400); Red Blood Count 3.56 10^6/uL (4.1-5.3); Red Cell Distribution Width 17.5 % (12.1-15.1)
[2020-02-23 05:28] LABS: Alanine Aminotransferase 11 U/L (0-33); Albumin Level 2.8 g/dL (3.5-5.2); Alkaline Phosphatase 69 IU/L (35-105); Anion Gap 12.3 (5-19); Aspartate Amino Transferase 13 U/L (0-32); Blood Urea Nitrogen 9 mg/dL (8-23); Calcium 7.8 mg/dL (8.5-10.5); Carbon Dioxide 28 mmol/L (22-29); Chloride 98 mmol/L (98-107); Globulin 2.8 g/dL (1.3-4.6); Glucose 68 mg/dL (65-115); Osmolality Calculated 277 mOsm/kg (285-295); Potassium 3.3 mmol/L (3.5-5.1); Sodium 135 mmol/L (136-145); Total Bilirubin 0.4 mg/dL (0.15-1.2); Total Protein 5.6 g/dL (6.6-8.7)
[2020-02-23] MEDS: metoprolol tartrate 25 mg Tablet 12.5 MG PO ×2 (07:34→17:55)
[2020-02-23] MEDS: atorvastatin 40 mg Tablet 20 MG PO (07:34)
[2020-02-23] MEDS: haloperidol inj 5 mg/mL INJ 1 mL 1 MG IM (16:08)
[2020-02-23] MEDS: aspirin 81 mg EC Tablet PO (17:55)
--- NOTE | 2020-02-23 20:36 | P.PN_ITS ---
Subjective Subjective: Interval history: Today she stated she was having some pain all over. Very irritable mood. Refuses to say much more. Refuses to be examined. Yesterday one-to-one sitter had to be changed due to her acting hostile to that person. Vitals/I&O/Wt Last Vital Signs Temp 98.0 F 02/23/20 19:15 Pulse 70 02/23/20 19:15 Resp 20 H 02/23/20 19:15 BP 162/88 02/23/20 19:15 Pulse Ox 94 02/23/20 19:15 02/23/20 02/23/20 02/23/20 06:59 14:59 22:59 Intake Total 300 / 670 120 / 120 370 / 490 Output Total 900 / 1040 400 / 400 300 / 700 Balance -600 / -370 -280 / -280 70 / -210 Weight last 48 hrs Weight 36.469 kg Weight 40.279 kg Physical Exam Const: COMMON NORMALS: no acute distress; negative for patient oriented x3 GENERAL APPEARANCE: frail appearing; not cooperative ORIENTATION/CONSCIOUSNESS: Yes awake and Yes confused OTHER: She is awake, alert, interactive, but in very irritable mood, not oriented to place or year and declined to be examined saying do not get near me . Anaya . HENMT: COMMON NORMALS: oropharynx normal Neck/C-Spine: COMMON NORMALS: no JVD Resp: COMMON NORMALS: normal respiratory effort AUSCULTATION: diminished lung sounds Cardio: COMMON NORMALS: no JVD, regular rhythm, S1 normal heart sound present, S2 normal heart sound present and No murmurs present (Cardio) RHYTHM: regular rhythm HEART SOUNDS: S1 normal heart sound present and S2 normal heart sound present GI: COMMON NORMALS: Normal to inspection, nondistended, normoactive bowel sounds present, Soft to palpation and non-tender PALPATION: Yes Soft to palpation Extremity: COMMON NORMALS: no joint enlargement and no pedal edema Neuro: COMMON NORMALS: moves all extremities; negative for patient oriented x3 Skin: LESIONS: lesion noted (Healing wound on LUE. LE wound without purulence today. No surrounding talya) OTHER: Additional shallow ulceration on lateral L bicep after a skin tear with surrounding erythema. Data : 02/23/20 04:33 02/23/20 04:33 Micro: Microbiology 02/20/20 11:15 Gram Stain - Final Ankle - Right Wound Culture - Final Staphylococcus aureus 02/21/20 21:20 Blood Culture - Preliminary Blood NEGATIVE TO DATE 02/21/20 21:15 Blood Culture - Preliminary Blood NEGATIVE TO DATE A&P Assessment and plan (1) Sepsis: Continue IV antibiotic for sepsis with gram-positive bacteremia, staphylococcal and streptococcal bacteremia. Follow-up repeat blood cultures. Unless mental status further improved with treatment, additional work-up is precluded by her inability and lack of interest to follow directions due to her advancing dementia. She would not be able to undergo for example MRI or shira ate a more extensive CT scanning. Her behavioral issues are severe barrier and risk to additional IV antibiotics given she requires one-to-one sitter to prevent her from pulling out her well protected IV, pulling off her dressings, picking at her wounds or creating new ones and trying to leave. Per her daughter she would not want to have overly involved or aggressive treatments, and reportedly has been ready when she could express it to proceed to end-of-life care. Her daughter feels that she perhaps could have wanted oral antibiotics, although understands that these are not the recommended therapy and are suboptimal at best, though for now is okay with receiving IV antibiotics while in the hospital. Case coordination is working on disposition arrangements which will most likely be returning with hospice care to assisted living facility due to difficulty securing placement elsewhere. Status: Acute (2) Cellulitis and abscess of leg: With gradual improvement. At this time continue with antibiotics by IV well pending arrangements for disposition. Wound care as she will allow since she is pretty adamant about removing anything and everything that may be attached to her. Status: Acute (3) Dementia: I am concerned that mental status may be at baseline, although with behavioral outburst likely fueled by the fact that she is out of her usual environment. Unless cooperation improved somewhat with treatment her assessment and treatment options are very limited. With progressive decline recently. Posthospitalization disposition arrangements being worked on by case coordination. Status: Acute Additional A&P Information Recent COVID-19 positive status. No respiratory or other suggestive symptoms currently. Rapid antigen negative. COPD: Currently not in exacerbation HLD HTN Continue IV antibiotics for treatment of sepsis with gram-positive bacteremia while arrangements are being made for post hospital care with most likely transition to hospice care with emphasis on comfort once placement is secured. Attestations Medical Necessity Statement*: Continue admission for treatment of sepsis, gram-positive bacteremia, and disposition arrangements. Coding Level of Care Code Acute Supervisor Mixing for [facility] Fwd Diagnoses Sepsis A41.9 Cellulitis and abscess of leg L03.119; L02.419 Dementia F03.90
[2020-02-24] VITALS (8 sets, daily range): BP systolic 142–177; BP diastolic 72–94; PULSE 71–88; RESP 16–24; TEMP 36.3–36.9; O2SAT 93–95
[2020-02-24] MEDS: cefepime 2,000 MG in sodium chloride 0.9% (plus) 50 ML 100 MG IV (01:20)
[2020-02-24] MEDS: heparin 5,000 unit/mL INJ 1 mL 5000 UNIT SUBCUT ×3 (02:44→18:33)
[2020-02-24] MEDS: vancomycin 750 MG in sodium chloride 0.9% 250 ML 250 MG IV (02:44)
[2020-02-24 06:47] LABS: Alanine Aminotransferase 8 U/L (0-33); Albumin Level 2.8 g/dL (3.5-5.2); Alkaline Phosphatase 72 IU/L (35-105); Anion Gap 12.5 (5-19); Aspartate Amino Transferase 13 U/L (0-32); Blood Urea Nitrogen 9 mg/dL (8-23); Calcium 8.3 mg/dL (8.5-10.5); Carbon Dioxide 29 mmol/L (22-29); Chloride 97 mmol/L (98-107); Globulin 3.2 g/dL (1.3-4.6); Glucose 90 mg/dL (65-115); Osmolality Calculated 278 mOsm/kg (285-295); Potassium 3.5 mmol/L (3.5-5.1); Sodium 135 mmol/L (136-145); Total Bilirubin 0.5 mg/dL (0.15-1.2)
--- NOTE | 2020-02-24 09:51 | PC.SOCIAL ---
IMM update Pg. 2 of IMM updated with patient's daughter over the phone.
[2020-02-24] MEDS: metoprolol tartrate 25 mg Tablet 12.5 MG PO ×2 (09:57→17:12)
--- NOTE | 2020-02-24 09:59 | P.PN_ITS ---
Subjective Subjective: Interval history: Today she is in a bit better disposition, allows herself to be examined. Denies pain. Denies trouble breathing. Prescription with one-to-one sitter earlier was still somewhat grumpy. Not eating well. Vitals/I&O/Wt Last Vital Signs Temp 97.7 F 02/24/20 07:06 Pulse 88 02/24/20 08:15 Resp 16 02/24/20 08:15 BP 164/72 02/24/20 07:06 Pulse Ox 95 02/24/20 08:15 02/23/20 02/24/20 02/24/20 22:59 06:59 14:59 Intake Total 370 / 490 Output Total 400 / 800 300 / 1100 Balance -30 / -310 -300 / -610 Weight last 48 hrs Weight 36.786 kg Weight 36.469 kg Physical Exam Const: COMMON NORMALS: no acute distress; negative for patient oriented x3 GENERAL APPEARANCE: frail appearing; not cooperative ORIENTATION/CONSCIOUSNESS: Yes awake and Yes confused OTHER: Mood a little bit better today. Allows to be examined. HENMT: COMMON NORMALS: oropharynx normal Neck/C-Spine: COMMON NORMALS: no JVD Resp: COMMON NORMALS: normal respiratory effort AUSCULTATION: diminished lung sounds Cardio: COMMON NORMALS: no JVD, regular rhythm, S1 normal heart sound present, S2 normal heart sound present and No murmurs present (Cardio) RHYTHM: regular rhythm HEART SOUNDS: S1 normal heart sound present and S2 normal heart sound present GI: COMMON NORMALS: Normal to inspection, nondistended, normoactive bowel sounds present, Soft to palpation and non-tender PALPATION: Yes Soft to palpation Extremity: COMMON NORMALS: no joint enlargement and no pedal edema Neuro: COMMON NORMALS: moves all extremities; negative for patient oriented x3 Skin: GENERAL SKIN EXAM: dry skin LESIONS: lesion noted (Left lower extremity wound without any drainage, scabs appear partially ) Picked off around ulceration. No surrounding erythema. OTHER: Wound of right lower extremities protected well by dressing, shows no surrounding erythema. No fahad inage. Data : 02/23/20 04:33 02/24/20 05:30 Micro: Microbiology 02/20/20 11:15 Gram Stain - Final Ankle - Right Wound Culture - Final Staphylococcus aureus A&P Assessment and plan (1) Sepsis: Preliminary repeat blood culture so far pending with no growth. Staph aureus is not MRSA, but is resistant to a number of antibiotics. Sensitive to doxycycline, but strep pyogenes is resistant. Both sensitive to Bactrim. She has a sulfa allergy. She so far has been on vancomycin, cefepime. Will discontinue. Both are sensitive to Rocephin. Will switch to Rocephin at this time. Will discuss with her daughter if perhaps IM Rocephin could be a consideration after discharge as this could potentially cover both pathogens and perhaps limited to problem with inconsistent intake of oral medications. Continue IV antibiotic for sepsis with gram-positive bacteremia, staphylococcal and streptococcal bacteremia. Follow-up repeat blood cultures. Unless mental status further improved with treatment, additional work-up is precluded by her inability and lack of interest to follow directions due to her advancing dementia. She would not be able to undergo for example MRI or tolerate a more extensive CT scanning. Her behavioral issues are severe barrier and risk to additional IV antibiotics given she requires one-to-one sitter to prevent her from pulling out her well protected IV, pulling off her dressings, picking at her wounds or creating new ones and trying to leave. Per her daughter she would not want to have overly involved or aggressive treatments, and reportedly has been ready when she could express it to proceed to end-of-life care. Her daughter feels that she perhaps could have wanted oral antibiotics, although understands that these are not the recommended therapy and are suboptimal at best, though for now is okay with receiving IV antibiotics while in the hospital. Case coordination is working on disposition arrangements which will most likely be returning with hospice care to assisted living [facility] due to difficulty securing placement elsewhere. Status: Acute (2) Cellulitis and abscess of leg: So far healing well. Very close monitoring has been needed to prevent her from picking and reopening her wounds. At this time continue with antibiotics by IV well pending arrangements for disposition. Wound care as she will allow since she is pretty adamant about removing anything and everything that may be attached to her. Status: Acute (3) Dementia: I am concerned that mental status may be at baseline, although with beha vioral outburst likely fueled by the fact that she is out of her usual environment. Unless cooperation improved somewhat with treatment her assessment and treatment options are very limited. With progressive decline recently. Posthospitalization disposition arrangements being worked on by case coordination. Status: Acute Additional A&P Information Continue admissionRecent COVID-19 positive status. No respiratory or other suggestive symptoms currently. Rapid antigen negative. COPD: Currently not in exacerbation HLD HTN Continue hospitalization for adjustment of IV antibiotic course, follow-up on blood cultures due to sepsis with gram-positive bacteremia, disposition planning and placement arrangements. Attestations Medical Necessity Statement*: Continue hospitalization for adjustment of IV antibiotic course, follow-up on blood cultures due to sepsis with gram-positive bacteremia, disposition planning and placement arrangements. Coding Level of Care Code Acute Area Director for [facility] Fwd Diagnoses Sepsis A41.9 Cellulitis and abscess of leg L03.119; L02.419 Dementia F03.90
--- NOTE | 2020-02-24 10:48 | PC.CHAP ---
Pastoral Care Encounter/Spiritual Assessment Type of Contact [] Declined nuisance wildlife trapper visit [] Patient/Family/Request visit [] Outpatient visit [] Follow-up visit [] Physician referral [] Code/Alert [X] Routine visit [] Staff referral [] Actively dying [X] Patient sleeping [] Family support [] [] Out of room [] Palliative care [] [] Receiving care in room [] Pre-surgical visit [] Trauma [] Long length of stay [] ICU visit [] Other: Relational/Emotional Strength [] Patient feels connected with others/family/visitors/staff [] Distress [] Loneliness/isolation [] Abandonment Spirituality of Patient [] Person of Ashlee [] Attends Denominational of their Ashlee [] Believes in Prayer [] Reads Bible or Roman Catholic materials [] There are Spiritual issues to be addressed Poster Interventions [] Prayer [] Active listening [] Non-anxious presence [] Spiritual/emotional support [] Crisis/trauma care [] Spiritual counseling [] Bereavement support [] Provided bereavement packet [] Provided Bible/devotional materials [] Provided toy/stuffed animal, coloring book to patient or family member [] Provided Communion [] Anointing/[place] [] Salvation [] Completed spiritual assessment [] Other: Impact on Illness or Injury [] Angry [] Fearful [] Anxious [] Often cries [] Exhaustion [] Unable to work [] Unable to attend anabaptist [] Unable to walk/stand [] Unable to read [] Unable to drive [] Unable to eat/drink [] Unable to sleep [] Unable to be with family [] Patient intubated [] Other: Summary Time spent with patient
[2020-02-24] MEDS: cefTRIAXone 1,000 MG in sodium chloride 0.9% (plus) 50 ML 100 MG IV (11:49)
[2020-02-24] MEDS: collagenase oint 30 gm 1 APPLIC TOPICAL (17:14)
[2020-02-25 04:00] VITALS: BP 128/68; PULSE 76; RESP 16; TEMP 36.5; O2SAT 93
--- NOTE | 2020-02-25 05:32 | PC.NURSE ---
Refused heparin Patient refused her heparin tonight. I explained to her what it was for and she stated 'sorry but no I dont want it
[2020-02-25 06:00] LABS: Alanine Aminotransferase 11 U/L (0-33); Albumin Level 2.8 g/dL (3.5-5.2); Alkaline Phosphatase 73 IU/L (35-105); Anion Gap 10.1 (5-19); Aspartate Amino Transferase 15 U/L (0-32); Blood Urea Nitrogen 13 mg/dL (8-23); Calcium 8.1 mg/dL (8.5-10.5); Carbon Dioxide 33 mmol/L (22-29); Chloride 100 mmol/L (98-107); Globulin 2.8 g/dL (1.3-4.6); Glucose 133 mg/dL (65-115); Osmolality Calculated 292 mOsm/kg (285-295); Potassium 3.1 mmol/L (3.5-5.1); Sodium 140 mmol/L (136-145); Total Bilirubin 0.2 mg/dL (0.15-1.2); Total Protein 5.6 g/dL (6.6-8.7)
[2020-02-25 07:21] VITALS: BP 169/85; PULSE 88; RESP 18; TEMP 36.6; O2SAT 94
[2020-02-25] MEDS: metoprolol tartrate 25 mg Tablet 12.5 MG PO ×2 (08:05→17:03)
[2020-02-25] MEDS: atorvastatin 40 mg Tablet 20 MG PO (08:06)
[2020-02-25] MEDS: collagenase oint 30 gm 1 APPLIC TOPICAL (08:11)
[2020-02-25 09:02] VITALS: PULSE 64; RESP 17; O2SAT 94
[2020-02-25] MEDS: potassium chloride oral liq 20 mEq/15 mL UDC PO (10:07)
[2020-02-25] MEDS: heparin 5,000 unit/mL INJ 1 mL 5000 UNIT SUBCUT ×2 (10:07→17:03)
[2020-02-25] MEDS: cefTRIAXone 1,000 MG in sodium chloride 0.9% (plus) 50 ML 100 MG IV (10:07)
--- NOTE | 2020-02-25 11:03 | P.PN_ITS ---
Subjective Subjective: Interval history: She is napping with head down on bedside table. Sitter says declined to be repositioned back into bed. Wakes up. Knows she is in the hospital, but does not know why. Does not know the year. Vitals/I&O/Wt Last Vital Signs Temp 97.8 F 02/25/20 07:21 Pulse 64 02/25/20 09:02 Resp 17 02/25/20 09:02 BP 169/85 02/25/20 07:21 Pulse Ox 94 02/25/20 09:02 02/24/20 02/25/20 02/25/20 22:59 06:59 14:59 Intake Total 170 / 290 Output Total 75 / 75 400 / 475 Balance 95 / 215 -400 / -185 Weight last 48 hrs Weight 35.743 kg Weight 36.786 kg Physical Exam Const: COMMON NORMALS: no acute distress; negative for patient oriented x3 GENERAL APPEARANCE: frail appearing; not cooperative ORIENTATION/CONSCIOUSNESS: Yes awake and Yes confused OTHER: Mood a little bit better today. Allows to be examined. HENMT: COMMON NORMALS: oropharynx normal Neck/C-Spine: COMMON NORMALS: no JVD Resp: COMMON NORMALS: normal respiratory effort AUSCULTATION: diminished lung sounds Cardio: COMMON NORMALS: no JVD, regular rhythm, S1 normal heart sound present, S2 normal heart sound present and No murmurs present (Cardio) RHYTHM: regular rhythm HEART SOUNDS: S1 normal heart sound present and S2 normal heart sound present GI: COMMON NORMALS: Normal to inspection, nondistended, normoactive bowel sounds present, Soft to palpation and non-tender PALPATION: Yes Soft to palpation Extremity: COMMON NORMALS: no joint enlargement and no pedal edema Neuro: COMMON NORMALS: moves all extremities; negative for patient oriented x3 Skin: GENERAL SKIN EXAM: dry skin LESIONS: lesion noted (Left lower extrem ity wound without any drainage, scabs appear partially ) OTHER: RLE wounds appear to be healing. Minimal discharge is still present. No extensive surrounding cellulitis. Data : 02/23/20 04:33 02/25/20 05:18 Micro: Microbiology 02/20/20 10:00 Blood Culture - Final Blood NO GROWTH AFTER 5 DAYS 02/20/20 09:54 Blood Culture - Final Blood NO GROWTH AFTER 5 DAYS 02/19/20 14:50 Blood Culture - Final Blood NO GROWTH AFTER 5 DAYS A&P Assessment and plan (1) Dementia: Dementia with intermittent agitated and hostile behavior. Poor adherence with therapy. One-to-one sitter has been needed so far. Discussed with psychiatry, appreciate assessment and recommendations with mary ann oliveira to additional treatment possibilities as per daughter's request with options for pharmacotherapy to reduce episodes of agitated behavior. With progressive decline recently. Posthospitalization disposition arrangements being worked on by case coordination. Status: Acute (2) Gram-positive bacteremia: Preliminary repeat blood culture so far pending with no growth. Staph aureus is not MRSA, but is resistant to a number of antibiotics. Sensitive to doxycycline, but strep pyogenes is resistant. Both sensitive to Bactrim. She has a sulfa allergy. She so far has been on vancomycin, cefepime. Both are sen sitive to Rocephin. Switched to Rocephin at this time. Attempted to reach daughter today to discuss if IM Rocephin can be consideration. Additional 7 days of therapy would give a total of 14 days, although again with understanding that this would be suboptimal treatment and evaluation based on what we are able to accomplish both with limited goals of care as well as behavioral and safety limitations in terms of maintaining a venous catheter. For now continue intravenous antibiotics while in the hospital. Requiring additional optimization of dementia with behavioral disturbance, as well as placement arrangements. Status: Acute (3) Cellulitis and abscess of leg: So far healing well. Very close monitoring has been needed to prevent her from picking and reopening her wounds. At this time continue with antibiotics by IV well pending arrangements for disposition. Wound care as she will allow since she is pretty adamant about removing anything and everything that may be attached to her. Status: Acute (4) Sepsis: Sepsis has resolved. Continue treatment of wounds and staphylococcal and streptococcal bacteremia. Status: Acute Additional A&P Information Continue admissionRecent COVID-19 positive status. No respiratory or other suggestive symptoms currently. Rapid antigen negative. COPD: Currently not in exacerbation HLD HTN Continue hospitalization for IV antibiotic infusions for gram-positive bacteremia following sepsis, wound care, optimization of dementia with behavioral disturbance, placement arrangements. Attestations Medical Necessity Statement*: Continue hospitalization for IV antibiotic infusions for gram-positive bacteremia following sepsis, wound care, optimization of dementia with behavioral disturbance, placement arrangements. Coding Level of Care Code Acute Threshing Department Supervisor for [facility] Diagnoses Dementia F03.90 Gram-positive bacteremia R78.81 Cellulitis and abscess of leg L03.119; L02.419 Sepsis A41.9
[2020-02-25 11:28] VITALS: BP 121/75; PULSE 67; RESP 17; TEMP 36.6; O2SAT 96
[2020-02-25 15:28] VITALS: BP 174/81; PULSE 78; RESP 18; TEMP 36.4; O2SAT 96
[2020-02-25] MEDS: aspirin 81 mg EC Tablet PO (17:03)
--- NOTE | 2020-02-25 17:54 | P.CONIM_ITS ---
Providers/Reason for Consult Consulting Physican/Specialty*: Jared Nava MD. Psychiatry. Reason for Consult*: Aggressiveness/agitation. Attending Physician: José Luis Ro Primary Care Provider: Oscar Gillespie MD Psych Consult HPI History of Present Illness Anthony Acosta is a 85 year old female who presented to the emergency department with the following report: Chief Complaint: Shortness of Breath/Dyspnea Stated Complaint: MS CHANGES, RESP Time Seen by Provider: 02/19/20 13:12 History of Present Illness: HPI Narrative: 85-year-old female brought in by EMS from a local assisted living care. There is concern there that she had change in mental status she also seemed to have significant difficulty breathing is conversationally dyspneic. She is unable to answer in a way that is helpful at all to contribute to her history she does follow simple commands and responds to verbal stimuli but her responses are nonsensical at best. MD elicited complaint: shortness of breath and cough Pertinent past history: COPD Onset (ago): hour(s) Timing: constant Severity: moderate Exacerbating factors: coughing Relieving factors: oxygen Known history of: COPD Associated symptoms: Reports cough; Deny abdominal pain, chest pain, fever(s) or vomiting Treatment prior to arrival: oxygen. [facility] her issues. She had been in the hospital for several days and began to become aggressive and agitated biting at staff and things of that nature. A psychiatric consult was requested to evaluate the current treatment of her agitation. She presents today quite pleasant and with nursing staff reporting that over the last 24 hours she has been much better and without issue. Upon interview she was clearly suffering from memory issues using approximations to cover the void as well as openly stating that certain answers were hard to come by like the year of her . Or how old she is. She also felt she knew this residential mortgage underwriter and that it had been sometime since we last saw 1 another. She spent some time trying to recall where we had met. That being said she tended to answer questions when asked, she had some orientation to where she was and did not remember her aggression nor was she behaving in an inappropriate or aggressive way. Psychiatric history: She denied any significant psychiatric history. Diagnosis of dementia exists. Substance abuse history: No contributory information. The remainder of her past medical and psychosocial history were limited given her being a limited historian. Meds Current Medications: Current Medications Generic Name Dose Route Start Last Admin Trade Name Freq PRN Reason Stop Dose Admin Aspirin 81 mg 02/19/20 18:52 02/25/20 17:03 Aspirin 81 Mg Ec Tablet PO 81 mg Q2D HERVE Administration Atorvastatin Calci um 20 mg 02/20/20 09:00 02/25/20 08:06 Atorvastatin 40 Mg Tablet PO 20 mg DAILY HERVE Administration Collagenase 1 applic 02/24/20 15:51 02/25/20 08:11 Collagenase Oint 30 Gm TOPICAL 1 applic DAILY HERVE Administration Haloperidol Lactat e 1 mg 02/22/20 07:49 02/23/20 16:08 Haloperidol Inj 5 Mg/Ml Inj 1 Ml IM 1 mg Q4H PRN Administration AGITATION Heparin Sodium (Be ef Lung) 5,000 unit 02/19/20 18:52 02/26/20 03:27 Heparin 5,000 Un it/Ml Inj 1 Ml SUBCUT Not Given Q8H HERVE Ceftriaxone Sodium 1,000 mg/ 50 mls @ 100 mls/ hr 02/24/20 10:15 02/25/20 10:37 Sodium Chloride IV Infused Q24H HERVE Infusion Protocol Metoprolol Tartrat e 12.5 mg 02/19/20 18:52 02/25/20 17:03 Metoprolol Tartr ate 25 Mg Tablet PO 12.5 mg BID HERVE Administration PFSH NPU PFSH: Medical History (Updated 02/25/20 @ 11:14 by José Luis Ro MD) CAD (coronary artery disease) COPD (chronic obstructive pulmonary disease) History of inferior wall myocardial infarction Hyperlipidemia Hypertension Squamous cell carcinoma of left upper extremity Surgical History History of appendectomy (~1940) History of coronary artery stent placement History of hysterectomy (~1982) History of repair of right rotator cuff (~2013) Family History Denies family history of Anesthesia complication Bleeding disorder Social History Smoking and tobacco status: former smoker Quit status (tobacco): has quit using tobacco Year quit tobacco: 3 Second hand smoke exposure: No Alcohol intake: never Desire information about alcohol rehabilitation?: No Counseling given: No Desire information about substance/drug rehabilitation?: No Counseling given: No Adopted: No Caregiver/support person: No Lives independently: Yes Housing: House Marital status: / Highest education level completed: High School Graduate Current occupational status: retired Current occupational exposures/hazards: No Pets and animals: No History of recent travel: No Current gender identity: Female Ashlee/Church: Nondenominational Special ashlee needs: No Financial difficulty paying for basics: Decline to Answer Mental Status Exam MSE Comments: This is an underweight/cachectic elderly white female with bruising all over her arms in a hospital gown with adequate eye contact. No abnormal movements except for mild psychomotor retardation. Cooperative exam no acute stress. Speech was decreased rate and volume. Mood described as okay, affect euthymic. Thought process organized for the most part thought content: Patient denied suicidal or homicidal ideation, there were no delusions reported or noted, she did not appear to be attending to internal stimuli or be delirious in any way. Attention and concentration were limited but mostly intact and memory was impaired but none were formally tested. She is alert and oriented to person and in general. Insight and judgment are limited, pulse control appeared fair. Vitals/I&O/Wt Last Vital Signs Temp 97.6 F 02/25/20 19:19 Pulse 65 02/25/20 19:19 Resp 18 02/25/20 19:19 BP 155/77 02/25/20 19:19 Pulse Ox 94 02/25/20 19:19 02/25/20 14:59 Intake Total 50 / 50 Output Total Balance 50 / 50 Weight last 48 hrs Weight 34.654 kg Weight 35.743 kg Data NPU Micro: Micro: Microbiology 02/20/20 10:00 Blood Culture - Fi nal Blood NO GROWTH AFTER 5 DAYS 02/20/20 09:54 Blood Culture - Fi nal Blood NO GROWTH AFTER 5 DAYS Microbiology 02/20/20 10:00 Blood Blood Culture - Final NO GROWTH AFTER 5 DAYS 02/20/20 09:54 Blood Blood Culture - Final NO GROWTH AFTER 5 DAYS A&P Assessment and plan (1) Gram-positive bacteremia: Status: Acute (2) Sepsis: Status: Acute (3) Cellulitis and abscess of leg: Status: Acute (4) Dementia: Status: Acute (5) History of inferior wall myocardial infarction: Status: Acute (6) CAD (coronary artery disease): Status: Acute (7) History of coronary artery stent placement: Status: Acute (8) Hypertension: Status: Acute (9) Hyperlipidemia: Status: Acute (10) COPD (chronic obstructive pulmonary disease): Status: Acute Qualifiers: COPD type: emphysema Emphysema type: panlobular Qualified Code(s): J43.1 - Panlobular emphysema Additional A&P Information This is an 85-year-old white female who presented to the emergency department with an infection which ultimately led to altered mental status. During her hospitalization she apparently had become delirious and was acting out and aggressive at times. She presents currently without any signs of those reports. 1. Continue current medication. She appears to be currently functioning well on the current regimen. I will continue to follow and identify if there is a need for change. 2. Clearly patient suffers from moderate dementia and there is not much that can be done except supportive care and the measures of increasing awareness of time dates location and her surroundings. 3. The behaviors both vital presents delirium from her medical condition and it appears that that is resolving with this appropriate treatment she is receiving. 4. We will continue to monitor and make recommendations as indicated. Attestations NPU Medical Necessity Statement*: N/A. Please see primary team note for medical necessity. Coding Level of Care Code Acute Machine Ii Coremaker for g Fwd Diagnoses Gram-positive bacteremia R78.81 Sepsis A41.9 Cellulitis and abscess of leg L03.119; L02.419 Dementia F03.90 History of inferior wall myocardial infarction I25.2 CAD (coronary artery disease) I25.10 History of coronary artery stent placement Z95.5 Hypertension I10 Hyperlipidemia E78.5 COPD (chronic obstructive pulmonary disease) J43.1 COPD type: emphysema Emphysema type: panlobular
--- NOTE | 2020-02-25 17:54 | PC.NURSE ---
SHIFT SUMMARY PATIENT HAS DONE WELL TODAY. SHE HAS AMBULATED TO THE BEDSIDE COMMODE WITH ONE PERSON ASSIST. THIS NURSE CHANGED ALL PATIENT'S DRESSINGS. HEALING WELL. PATIENT HAS BEEN CALM MOST OF TODAY. CONTINUES TO BE CONFUSED AND PICKING AT IV. SITTER HAS DONE WELL TO DISTRACT PATIENT. NO COMPLAINTS AT THIS TIME.
[2020-02-25 19:19] VITALS: BP 155/77; PULSE 65; RESP 18; TEMP 36.4; O2SAT 94
[2020-02-26] VITALS (8 sets, daily range): BP systolic 114–154; BP diastolic 65–87; PULSE 62–89; RESP 17–18; TEMP 36.3–36.8; O2SAT 92–95
[2020-02-26 05:57] LABS: Anion Gap 13.3 (5-19); Blood Urea Nitrogen 14 mg/dL (8-23); Calcium 8.3 mg/dL (8.5-10.5); Carbon Dioxide 28 mmol/L (22-29); Chloride 101 mmol/L (98-107); Glucose 103 mg/dL (65-115); Osmolality Calculated 289 mOsm/kg (285-295); Potassium 3.3 mmol/L (3.5-5.1); Sodium 139 mmol/L (136-145)
[2020-02-26] MEDS: collagenase oint 30 gm 1 APPLIC TOPICAL (07:08)
[2020-02-26] MEDS: atorvastatin 40 mg Tablet 20 MG PO (07:09)
[2020-02-26] MEDS: metoprolol tartrate 25 mg Tablet 12.5 MG PO ×2 (07:09→17:09)
[2020-02-26] MEDS: ipratropium-albuterol 3 mL Neb INHALATION (08:57)
[2020-02-26] MEDS: cefTRIAXone 1,000 MG in sodium chloride 0.9% (plus) 50 ML 100 MG IV (10:06)
[2020-02-26] MEDS: heparin 5,000 unit/mL INJ 1 mL 5000 UNIT SUBCUT ×2 (10:07→17:10)
[2020-02-26] MEDS: potassium chloride oral liq 20 mEq/15 mL UDC 40 MEQ PO (10:07)
--- NOTE | 2020-02-26 11:25 | PC.SOCIAL ---
IMM update Pg. 2 of IMM updated with patient's daughter over the phone, verbalized understanding.
--- NOTE | 2020-02-26 12:11 | PM.PN ---
Subjective Subjective: Interval history: She appears calmer. Sleeping. Wakes up to her name called. Denies pain. No oriented to place or year. Denies chest pain, trouble breathing or other complaints. Vitals/I&O/Wt Last Vital Signs Temp 97.7 F 02/26/20 11:27 Pulse 73 02/26/20 11:27 Resp 18 02/26/20 11:27 BP 114/68 02/26/20 11:27 Pulse Ox 93 02/26/20 11:27 02/25/20 02/26/20 02/26/20 22:59 06:59 14:59 Intake Total 240 / 240 Output Total 300 / 300 100 / 400 Balance -300 / -250 -100 / -350 240 / 240 Weight last 48 hrs Weight 34.654 kg Weight 35.743 kg Physical Exam Const: COMMON NORMALS: no acute distress; negative for patient oriented x3 GENERAL APPEARANCE: frail appearing; not cooperative ORIENTATION/CONSCIOUSNESS: Yes awake and Yes confused OTHER: Calmer. HENMT: COMMON NORMALS: oropharynx normal Neck/C-Spine: COMMON NORMALS: no JVD Resp: COMMON NORMALS: normal respiratory effort AUSCULTATION: diminished lung sounds Cardio: COMMON NORMALS: no JVD, regular rhythm, S1 normal heart sound present, S2 normal heart sound present and No murmurs present (Cardio) RHYTHM: regular rhythm HEART SOUNDS: S1 normal heart sound present and S2 normal heart sound present GI: COMMON NORMALS: Normal to inspection, nondistended, normoactive bowel sounds present, Soft to palpation and non-tender PALPATION: Yes Soft to palpation Extremity: COMMON NORMALS: no joint enlargement and no pedal edema Neuro: COMMON NORMALS: moves all extremities; negative for patient oriented x3 Skin: GENERAL SKIN EXAM: dry skin LESIONS: lesion noted (Left lower extremity wound without any drainage, scabs appear partially ) OTHER: RLE wounds appear to be healing. Minimal discharge is still present. No extensive surrounding cellulitis. Data : 02/23/20 04:33 02/26/20 04:45 Micro: Microbiology 02/20/20 10:00 Blood Culture - Final Blood NO GROWTH AFTER 5 DAYS 02/20/20 09:54 Blood Culture - Final Blood NO GROWTH AFTER 5 DAYS A&P Assessment and plan (1) Dementia: Appreciate psychiatry evaluation. Appreciate any additional recommendations. Dementia with intermittent agitated and hostile behavior. Poor adherence with therapy. One-to-one sitter has been needed so far. Discussed with psychiatry, appreciate assessment and recommendations with regards to additional treatment possibilities as per daughter's request with options for pharmacotherapy to reduce episodes of agitated behavior. With progressive decline recently. Posthospitalization disposition arrangements being worked on by case coordination. Status: Acute (2) Gram-positive bacteremia: We revisited again her bacteremia and wounds with her daughter today. Discussed the usual diagnostic approach with evaluation of bacteremia to assess for complicated vs simple bacteremia, additional assessments including ADELA and other, as well as IV antibiotics and duration of 2 vs 6 weeks. Her daughter feels that intramuscular injuctions after discharge to complete 14 days of therapy (which she understands is not the standard regimen for unidentified complexity bacteremia and route of administration and may be a suboptimal regimen) would be something that would have been acceptable to her mother. Discussed with case coordination to see if this can be arranged after discharge. For now continue intravenous antibiotics while in the hospital. Status: Acute (3) Cellulitis and abscess of leg: Improving. Wounds appear to be healing. Cellulitis resolved. Cllose monitoring to prevent her from picking and reopening her wounds. At this time continue with antibiotics by IV well pending arrangements for disposition. Wound care as she will allow since she is pretty adamant about removing anything and everything that may be attached to her. Status: Acute (4) Sepsis: Sepsis has resolved. Continue treatment of wounds and staphylococcal and streptococcal bacteremia. Status: Acute Additional A&P Information Continue admissionRecent COVID-19 positive status. No respiratory or other suggestive symptoms currently. Rapid antigen negative. COPD: Currently not in exacerbation HLD HTN Continue hospitalization for IV antibiotic infusions for gram-positive bacteremia following sepsis, wound care, optimization of dementia with behavioral disturbance. Placement arrangements. Attestations Medical Necessity Statement*: Continue admission for IV antibiotics for gram positive coccal bacteremia, source conctrol with wound care and close supervision to prevent reopening of wounds by patient, and discharge planning and arrangements. Coding Level of Care Code Acute Manufacturing Engineering Manager for [facility] Fwd Exam Comprehensive Diagnoses Dementia F03.90 Gram-positive bacteremia R78.81 Cellulitis and abscess of leg L03.119; L02.419 Sepsis A41.9
--- NOTE | 2020-02-26 18:16 | PC.NURSE ---
SHIFT SUMMARY PATIENT HAS DONE WELL TODAY. SHE HAS BEEN CALM. GOOD URINE OUTPUT. PATIENT HAD A BM TODAY. TAKING MEDICATIONS WITHOUT ISSUE. NO COMPLAINTS AT THIS TIME.
--- NOTE | 2020-02-26 19:43 | P.PN_ITS ---
Subjective NPU Subjective: Interval history: Anthony presented reporting that she is doing pretty good and was still struggling with memory, but not having any challenges with aggression or agitation still. She still thinks that she knows this clinical writer. She was feeling tired and reporting she is sleeping well. she is eating ok. Mental Status Exam MSE Comments: This is an underweight/cachectic elderly white female with bruising all over her arms in a hospital gown with adequate eye contact. No ab normal movements except for mild psychomotor retardation. Cooperative exam no acute stress. Speech was decreased rate and volume. Mood described as fine, affect euthymic. Thought process organized for the most part thought content: Patient denied suicidal or homicidal ideation, there were no delusions reported or noted, she did not appear to be attending to internal stimuli or be delirious in any way. Attention and concentration were limited but mostly intact and memory was impaired but none were formally tested. She is alert and oriented to person and in general. Insight and judgment are limited, pulse control appeared fair. Vitals/I&O/Wt Last Vital Signs Temp 97.3 F 02/26/20 19:10 Pulse 67 02/26/20 19:10 Resp 18 02/26/20 19:10 BP 136/65 02/26/20 19:10 Pulse Ox 93 02/26/20 19:10 02/26/20 14:59 Intake Total 290 / 290 Output Total Balance 290 / 290 Weight last 48 hrs Weight 37.784 kg Weight 34.654 kg Data NPU : 02/23/20 04:33 02/26/20 04:45 Micro: Microbiology 02/21/20 21:20 Blood Culture - Final Blood NO GROWTH AFTER 5 DAYS 02/21/20 21:15 Blood Culture - Final Blood NO GROWTH AFTER 5 DAYS Microbiology 02/21/20 21:20 Blood Blood Culture - Final NO GROWTH AFTER 5 DAYS 02/21/20 21:15 Blood Blood Culture - Final NO GROWTH AFTER 5 DAYS A&P Additional A&P Information (1) Gram-positive bacteremia: (2) Sepsis: (3) Cellulitis and abscess of leg: (4) Dementia: (5) History of inferior wall myocardial infarction: (6) CAD (coronary artery disease): (7) History of coronary artery stent placement: (8) Hypertension: (9) Hyperlipidemia: (10) COPD (chronic obstructive pulmonary disease): Additional A&P Information This is an 85-year-old white female who presented to the emergency department with an infection which ultimately led to altered mental status. During her hospitalization she apparently had become delirious and was acting out and aggressive at times. She presents currently without any signs of those reports. 1. Continue current medication. She appears to be currently functioning well on the current regimen. No need for any changes. 2. Clearly patient suffers from moderate dementia and there is not much that can be done except supportive care and the measures of increasing awareness of time dates location and her surroundings. 3. The behaviors both vital presents delirium from her medical condition and it appears that that is resolving with this appropriate treatment she is receiving. 4. Please contact if she has another worsening of behavior. Attestations NPU Medical Necessity Statement*: N/A. Please see primary team note for medical necessity. Coding Level of Care Code Acute Securities Counselor for Curt Reinoso
[2020-02-27 00:13] VITALS: BP 152/81; PULSE 75; RESP 17; TEMP 36.6; O2SAT 95
[2020-02-27] MEDS: heparin 5,000 unit/mL INJ 1 mL 5000 UNIT SUBCUT ×3 (03:05→18:12)
[2020-02-27 07:16] VITALS: BP 150/74; PULSE 75; RESP 18; TEMP 36.4; O2SAT 96
[2020-02-27 08:07] VITALS: PULSE 77; RESP 17; O2SAT 93
[2020-02-27] MEDS: metoprolol tartrate 25 mg Tablet 12.5 MG PO ×2 (10:28→18:12)
[2020-02-27] MEDS: atorvastatin 40 mg Tablet 20 MG PO (10:29)
[2020-02-27] MEDS: collagenase oint 30 gm 1 APPLIC TOPICAL (10:30)
[2020-02-27 10:59] VITALS: BP 159/78; PULSE 75; RESP 18; O2SAT 94
[2020-02-27] MEDS: cefTRIAXone 1,000 MG in sodium chloride 0.9% (plus) 50 ML 100 MG IV (11:00)
--- NOTE | 2020-02-27 13:17 | P.PN_ITS ---
Subjective Subjective: Interval history: Patient is oriented to self and place hospital . Her one-to-one sitter was discontinued yesterday. She appears to have some baseline confusion secondary to underlying dementia. Answers simple questions and follows commands appropriately. Her blood cultures were +2 bottles from the same set growing 2 different bacteria, MSSA and strep pyogenous. Her wounds on the right lower extremities are very superficial and do not appear to be infected. Her skin is extremely dry and flaky. Her appetite and oral intake appears to be improving. Repeat blood cultures are negative. Patient's right medial malleolus area small superficial wound due to severely dry skin appears clean and noninfected. Septic arthritis felt highly unlikely. Her wound cultures are not surgical and superficial only. Vitals/I&O/Wt Last Vital Signs Temp 97.5 F L 02/27/20 07:16 Pulse 75 02/27/20 10:59 Resp 18 02/27/20 10:59 BP 159/78 02/27/20 10:59 Pulse Ox 94 02/27/20 10:59 02/26/20 02/27/20 02/27/20 22:59 06:59 14:59 Output Total 200 / 200 100 / 300 200 / 200 Balance -200 / 90 -100 / -10 -200 / -200 Weight last 48 hrs Weight 37.784 kg Weight 34.654 kg Physical Exam Const: COMMON NORMALS: no acute distress Resp: COMMON NORMALS: normal respiratory effort and clear to auscultation bilaterally AUSCULTATION: clear to auscultation bilaterally Cardio: COMMON NORMALS: regular rate, regular rhythm and S2 normal heart sound present RATE: regular rate RHYTHM: regular rhythm HEART SOUNDS: S2 normal heart sound present OTHER: No lower extremity edema GI: COMMON NORMALS: Normal to inspection, nondistended, normoactive bowel sounds present, Soft to palpation and non-tender PALPATION: Yes Soft to palpation Neuro: COMMON NORMALS: no focal motor deficits Data : 02/23/20 04:33 02/26/20 04:45 Micro: Microbiology 02/19/20 16:00 Blood Culture - Final Blood Staphylococcus aureus Strep pyogenes (grp a) 02/21/20 21:20 Blood Culture - Final Blood NO GROWTH AFTER 5 DAYS 02/21/20 21:15 Blood Culture - Final Blood NO GROWTH AFTER 5 DAYS A&P Assessment and plan (1) Dementia: Appreciate psychiatry evaluation. Appreciate any additional recommendations. Dementia with intermittent agitated and hostile behavior. Poor adherence with therapy. One-to-one sitter has been needed so far. Discussed with psychiatry, appreciate assessment and recommendations with regards to additional treatment possibilities as per daughter's request with options for pharmacotherapy to reduce episodes of agitated behavior. With progressive decline recently. Posthospitalization disposition arrangements being worked on by case coordination. Status: Acute (2) Gram-positive bacteremia: We revisited again her bacteremia and wounds with her daughter today. Discussed the usual diagnostic approach with evaluation of bacteremia to assess for complicated vs simple bacteremia, additional assessments including ADELA and other, as well as IV antibiotics and duration of 2 vs 6 weeks. Her daughter feels that intramuscular injuctions after discharge to complete 14 days of therapy (which she understands is not the standard regimen for unidentified com plexity bacteremia and route of administration and may be a suboptimal regimen) would be something that would have been acceptable to her mother. Discussed with case coordination to see if this can be arranged after discharge. For now continue intravenous antibiotics while in the hospital. Status: Acute (3) Cellulitis and abscess of leg: Improving. Wounds appear to be healing. Cellulitis resolved. Cllose monitoring to prevent her from picking and reopening her wounds. At this time continue with antibiotics by IV well pending arrangements for disposition. Wound care as she will allow since she is pretty adamant about removing anything and everything that may be attached to her. Status: Acute (4) Sepsis: Sepsis has resolved. Continue treatment of wounds and staphylococcal and streptococcal bacteremia. Status: Acute Additional A&P Information Continue admissionRecent COVID-19 positive status. No respiratory or other ugarte ggestive symptoms currently. Rapid antigen negative. COPD: Currently not in exacerbation HLD HTN PLAN: Patient's bacteremia is likely a contamination and I doubt true bacterial infection. Patient clinically is dry and I have encouraged oral intake. Continue ceftriaxone while she is hospitalized with consideration to transition to oral antibiotic upon discharge. Given patient's age and presentation/labs I think further evaluation with ADELA could be avoided. Should patient spike fever post discharge then repeat blood cultures will need to be performed and if positive at that time further evalu ation with ADELA could be considered. TTE showed no evidence of vegetation. Repeat lab work in a.m. Continue physical therapy. Awaiting placement to nursing facility. Attestations Medical Necessity Statement*: Patient with suspected bacteremia as well as delirium with behavioral disturbance requires close inpatient monitoring and treatment until appropriate arrangements are done. Coding Level of Care Code Acute Senior Industrial Engineer for g Fwd Diagnoses Dementia F03.90 Gram-positive bacteremia R78.81 Cellulitis and abscess of leg L03.119; L02.419 Sepsis A41.9
--- NOTE | 2020-02-27 14:24 | PM.DCS ---
Discharge Providers Date of Admission: 02/19/20 17:10 Date of Discharge: February 27, 2020 Attending Provider at Admission: José Luis Ro Attending Provider at Discharge: Miky Zavaleta MD Primary Care Provider: Oscar Gillespie MD Diagnoses at Discharge Discharge Diagnosis (1) Dementia: Status: Acute (2) Gram-positive bacteremia: Status: Acute (3) Cellulitis and abscess of leg: Status: Acute (4) Sepsis: Status: Acute Reason for Visit Reason for Visit: MS CHANGES, RESP Hospital Course Hospital Course Patient presented with altered mental status. She was noted to be dehydrated and tachycardic. She noted to have cellulitis and suspected underlying abscess. During my evaluation I did not appreciate abscess. Her wounds are very superficial. Her cellulitis is completely resolved. She did meet sepsis criteria and 2 out of 4 blood cultures are growing 2 different bacteria with strep pyogenous and MSSA. This appears to be a contamination or rather transient bacteremia. Her repeat cultures were negative and TTE showed no evidence of vegetations. Considering patient's age and rapid clinical improvement further evaluation with ADELA was not performed. She was treated with ceftriaxone for 4 days and I will continue patient on Omnicef for 10 more days. Should patient spike a fever repeat blood cultures will need to be performed and at that time further evaluation with ADELA could be considered. Patient appears to be at baseline this morning. Dr. Nava was okay from psychiatric standpoint for patient to be discharged. Outpatient follow-up with wound care clinic will be requested. Patient's confusion could possibly be related to opioids therefore I will decrease [place] to twice daily as needed. Encouraged oral intake. Potassium was repleted this morning. Physical Exam Narrative: EXAM NARRATIVE: As per my note done earlier today. Discharge Data Data Completed and Pending: Completed Studies During Hospitalization Category Date Time Status CT head wo con* 7 0450 Stat Cat Scan 02/19/20 14:16 Completed XR chest 1V tammi ble [id number] Stat Exams 02/19/20 13:28 Completed CV echo complete* [id number] Routine Ultrasound 02/21/20 19:27 Completed Pending at discharge Category Date Time Status Complete Blood Co unt w/Auto AM LABS Lab 02/28/20 04:00 Ordered Complete Blood Co unt w/Auto AM LABS Lab 02/29/20 04:00 Ordered Complete Blood Co unt w/Auto AM LABS Lab 03/01/20 04:00 Ordered Comprehensive Met abolic Panel AM LA BS Lab 02/28/20 04:00 Ordered Comprehensive Met abolic Panel AM LA BS Lab 02/29/20 04:00 Ordered Comprehensive Met abolic Panel AM LA BS Lab 03/01/20 04:00 Ordered Magnesium AM LABS Lab 02/28/20 04:00 Ordered Magnesium AM LABS Lab 02/29/20 04:00 Ordered Magnesium AM LABS Lab 03/01/20 04:00 Ordered Vitals: Last Vital Signs Temp 97.5 F L 02/27/20 07:16 Pulse 75 02/27/20 10:59 Resp 18 02/27/20 10:59 BP 159/78 02/27/20 10:59 Pulse Ox 94 02/27/20 10:59 Discharge Plan Discharge Patient Disposition: er Intermediate Care Fac Condition: Stable Prescriptions: New [place] 5-325 mg tablet 1 tab PO Q12H PRN (Reason: pain) Qty: 10 RF: 0 cefdinir 300 mg capsule 300 mg PO BID 10 Days Qty: 20 RF: 0 Continued albuterol sulfate [Ventolin HFA] 90 mcg/actuation HFA aerosol inhaler 2 puff INHALATION QID PRN (Reason: Shortness Of Breath) RF: 0 nitroglycerin [Nitrostat] 0.4 mg tablet, sublingual 0.4 mg SUBLINGUAL Q5M PRN (Reason: chest pains) RF: 0 aspirin 81 mg tablet,delayed release (DR/EC) 81 mg PO Q2D RF: 0 (DME) nebulizers Misc See Rx Instructions .ROUTE .MEDSUPPLY Qty: 1 RF: 0 (DME) nebulizer accessories Kit See Rx Instructions .ROUTE .MEDSUPPLY Qty: 1 RF: 0 Incruse Ellipta 62.5 mcg/actuation blister with device 1 inh INHALATION DAILY Qty: 30 RF: 3 metoprolol tartrate 25 mg tablet 12.5 mg PO BID Qty: 90 RF: 3 cetirizine-pseudoephedrine [Zyrtec-D] 5-120 mg tablet extended release 12 hr 1 tab PO DAILY Qty: 24 RF: 0 acetaminophen 325 mg Tablet 325 - 650 mg PO Q4H PRN (Reason: pain/fever) RF: 0 Dulcolax (bisacodyl) 10 mg Suppository 10 mg GA DAILY PRN (Reason: Constipation) RF: 0 Ventolin HFA 90 mcg/actuation HFA aerosol inhaler 2 puff INHALATION Q2H PRN (Reason: Dyspnea) RF: 0 ipratropium bromide 0.03 % spray,non-aerosol 1 spray INTRANASAL BID RF: 0 Culturelle 1 tab PO PRN PRN (Reason: unknown) RF: 0 Milk of Magnesia See Rx Instructions .ROUTE .COMPLEX RF: 0 Natural Tears See Rx Instructions .ROUTE .COMPLEX RF: 0 simvastatin 40 mg tablet 40 mg PO DAILY RF: 0 Discontinued hydrocodone-acetaminophen 5-325 mg Tablet 1 tab PO Q6H PRN (Reason: Pain) RF: 0 Discharge Orders: Discharge Order (Routine); Ordered 02/27/20 Ordered By: Miky Zavaleta Referrals: Yinka Kim [Outside] Oscar Gillespie MD [Primary Care Provider] - 4-7 days Discharge Diet: Advance as tolerated Discharge Activity: Increase activity as tolerated Activity Restrictions/Additional Instructions: Please call your doctor or present to emergency department if your condition worsens or you develop diarrhea, lightheadedness, fatigue or see blood in your stool or black stool. Patient should have repeat blood cultures in case if she spikes fever and ADELA procedure should be considered to rule out endocarditis. Discharge Attestations Time Spent in Discharge Care*: less than 30 min Quality Metrics Clinical Quality Measures During this hospital stay, did patient experience: None Coding Level of Care Code Acute Homemaker Companion for Radhag Fwd Diagnoses Dementia F03.90 Gram-positive bacteremia R78.81 Cellulitis and abscess of leg L03.119; L02.419 Sepsis A41.9
--- NOTE | 2020-02-27 14:32 | PC.NURSE ---
CHANGED PTS DRESSING WITH DR. COLLINS AT BEDSIDE. RECEIVED ORDERS TO D/C HYDRAFERABLUE AND KERLEX AND CONTINUE SANTYL OINTMENT WITH AN ISLAND DRESSING COVERING WOUNDS
[2020-02-27 15:15] VITALS: BP 98/62; PULSE 75; RESP 18; TEMP 36.3; O2SAT 97
[2020-02-27] MEDS: aspirin 81 mg EC Tablet PO (18:12)
--- NOTE | 2020-02-27 18:48 | PC.NURSE ---
1700-pt pulled out her iv, notified dr. peng and he okayed leaving it out as she is d/c in the am
[2020-02-27 19:17] VITALS: BP 133/77; PULSE 62; RESP 18; TEMP 36.6; O2SAT 95
[2020-02-28 00:36] VITALS: BP 182/88; PULSE 74; RESP 18; TEMP 36.5; O2SAT 94
[2020-02-28] MEDS: heparin 5,000 unit/mL INJ 1 mL 5000 UNIT SUBCUT (02:04)
[2020-02-28 04:45] VITALS: BP 150/76; PULSE 74; RESP 18; TEMP 36.9; O2SAT 96
[2020-02-28 05:30] LABS: Basophils # 0.1 10^3/uL (0.0-0.1); Basophils % 1.1 %; Hematocrit 35.4 % (37.0-47.0); Hemoglobin 10.3 g/dL (11.5-15.3); Lymphocytes # 1.1 10^3/uL (0.8-4.8); Lymphocytes % 23.7 %; Mean Corpuscular HGB Conc 29.1 g/dL (30.0-36.0); Mean Corpuscular Hemoglobin 24.8 pg (28.0-34.0); Mean Corpuscular Volume 85.1 fL (81-99); Mean Platelet Volume 10.7 fL (7.4-10.4); Monocytes # 0.5 10^3/uL (0.2-0.9); Monocytes % 11.6 %; Neutrophils % 62.5 %; Nucleated Red Blood Cells % 0 %; Platelet Count 308 10^3/cmm (130-400); Red Blood Count 4.16 10^6/uL (4.1-5.3); White Blood Count 4.5 10^3/uL (4.0-10.0)
[2020-02-28 06:01] LABS: Alanine Aminotransferase 9 U/L (0-33); Albumin Level 3.2 g/dL (3.5-5.2); Alkaline Phosphatase 72 IU/L (35-105); Anion Gap 11.5 (5-19); Aspartate Amino Transferase 11 U/L (0-32); Blood Urea Nitrogen 10 mg/dL (8-23); Calcium 8.6 mg/dL (8.5-10.5); Carbon Dioxide 29 mmol/L (22-29); Chloride 99 mmol/L (98-107); Glucose 91 mg/dL (65-115); Magnesium 1.8 mg/dL (1.7-2.3); Osmolality Calculated 281 mOsm/kg (285-295); Potassium 3.5 mmol/L (3.5-5.1); Sodium 136 mmol/L (136-145); Total Bilirubin 0.5 mg/dL (0.15-1.2); Total Protein 6.2 g/dL (6.6-8.7)
[2020-02-28 07:13] VITALS: BP 160/81; PULSE 73; RESP 18; TEMP 36.4; O2SAT 95
--- NOTE | 2020-02-28 09:14 | PC.NURSE ---
PT REFUSED ALL MEDS, NOTIFIED DR. COLLINS OF HER REFUSAL.
--- NOTE | 2020-02-28 10:17 | P.PN_ITS ---
Subjective Subjective: Interval history: Patient denies any complaints this morning including shortness of breath or chest pain. She remains pleasantly confused and only oriented to self and place. Her vitals are stable. She did eat some of her breakfast. Labs appear stable. She was not discharged yesterday because of not enough nursing staff at nursing facility and I was told that patient is able to go today. Vitals/I&O/Wt Last Vital Signs Temp 97.5 F L 02/28/20 07:13 Pulse 73 02/28/20 07:13 Resp 18 02/28/20 07:13 BP 160/81 02/28/20 07:13 Pulse Ox 95 02/28/20 07:13 02/27/20 02/28/20 02/28/20 22:59 06:59 14:59 Output Total 400 / 600 300 / 300 Balance -400 / -600 -300 / -300 Weight last 48 hrs Weight 36.287 kg Weight 37.784 kg Physical Exam Const: COMMON NORMALS: no acute distress Resp: COMMON NORMALS: normal respiratory effort and clear to auscultation bilaterally AUSCULTATION: clear to auscultation bilaterally Cardio: COMMON NORMALS: regular rate, regular rhythm and S2 normal heart sound present RATE: regular rate RHYTHM: regular rhythm HEART SOUNDS: S2 normal heart sound present OTHER: No lower extremity edema GI: COMMON NORMALS: Normal to inspection, nondistended, normoactive bowel sounds present, Soft to palpation and non-tender PALPATION: Yes Soft to palpation Neuro: COMMON NORMALS: no focal motor deficits Data : 02/28/20 04:48 02/28/20 04:48 Micro: Microbiology 02/19/20 16:00 Blood Culture - Final Blood Staphylococcus aureus Strep pyogenes (grp a) A&P Assessment and plan (1) Dementia: Appreciate psychiatry evaluation. Appreciate any additional recommendations. Dementia with intermittent agitated and hostile behavior. Poor adherence with therapy. One-to-one sitter has been needed so far. Discussed with psychiatry, appreciate assessment and recommendations with regards to additional treatment possibilities as per daughter's request with options for pharmacotherapy to reduce episodes of agitated behavior. With progressive decline recently. Posthospitalization disposition arrangements being worked on by case coordination. Status: Acute (2) Gram-positive bacteremia: We revisited again her bacteremia and wounds with her daughter today. Discussed the usual diagnostic approach with evaluation of bacteremia to assess for complicated vs simple bacteremia, additional assessments including ADELA and other, as well as IV antibiotics and duration of 2 vs 6 weeks. Her daughter feels that intramuscular injuctions after discharge to complete 14 days of therapy (which she understands is not the standard regimen for unidentified complexity bacteremia and route of administration and may be a suboptimal regimen) would be something that would have been acceptable to her mother. Discussed with case coordination to see if this can be arranged after discharge. For now continue intravenous antibiotics while in the hospital. Status: Acute (3) Cellulitis and abscess of leg: Improving. Wounds appear to be healing. Cellulitis resolved. Cllose monitoring to prevent her from picking and reopening her wounds. At this time continue with antibiotics by IV well pending arrangements for disposition. Wound care as she will allow since she is pretty adamant about removing anything and everything that may be attached to her. Status: Acute (4) Sepsis: Sepsis has resolved. Continue treatment of wounds and staphylococcal and streptococcal bacteremia. Status: Acute Additional A&P Information Continue admissionRecent COVID-19 positive status. No respiratory or other suggestive symptoms currently. Rapid antigen negative. COPD: Currently not in exacerbation HLD HTN PLAN: Patient will be discharged today. Please refer to DC summary done yesterday. No medication changes will be made. Attestations Medical Necessity Statement*: Patient is being discharged. Coding Level of Care Code Acute Education Trainer for Curt Fwd Diagnoses Dementia F03.90 Gram-positive bacteremia R78.81 Cellulitis and abscess of leg L03.119; L02.419 Sepsis A41.9
--- NOTE | 2020-02-28 10:29 | DCPLANNER ---
Pg 2 of IM updated and explained to pt. No questions, copy provided. She wants to go today & it looks like this will happen.
[2020-02-28 10:54] VITALS: BP 156/88; PULSE 78; RESP 18; TEMP 36.4; O2SAT 97
[2020-02-28 14:29] VITALS: BP 156/88; PULSE 78; RESP 18; TEMP 36.4; O2SAT 97
== END 2020-02-28 12:45 | disposition intermediate care facility (04) | DRG 872 ==
LOC: ER 17:00 → MEDSURG 17:21
PROVIDERS: Admitting Provider Internal Medicine; Emergency Provider Family Medicine; PCP Internal Medicine; Visit Provider Internal Medicine
DX: A41.9 Sepsis, unspecified organism (principal); F05 Delirium due to known physiological condition; L03.115 Cellulitis of right lower limb; Z16.20 Resistance to unspecified antibiotic; F03.90 Unspecified dementia, unspecified severity, without behavioral disturbance, psychotic disturbance, mood disturbance, and anxiety; I25.10 Atherosclerotic heart disease of native coronary artery without angina pectoris; E78.5 Hyperlipidemia, unspecified; I10 Essential (primary) hypertension; Z86.19 Personal history of other infectious and parasitic diseases; I25.2 Old myocardial infarction; Z85.828 Personal history of other malignant neoplasm of skin; Z87.891 Personal history of nicotine dependence; L98.499 Non-pressure chronic ulcer of skin of other sites with unspecified severity; A49.01 Methicillin susceptible Staphylococcus aureus infection, unspecified site; J43.1 Panlobular emphysema; E86.0 Dehydration; Z79.82 Long term (current) use of aspirin; Z79.51 Long term (current) use of inhaled steroids
CPT/HCPCS: 12345; 36415; 36600; 70450; 71045; 80048; 80051; 80053; 80202; 81003; 82330; 82550; 82805; 83605; 83735; 83880; 84484; 85025; 86140; 87040; 87070; 87075; 87077; 87186; 87205; 87426; 93005; 93306; 94640; 96372; 99283; J0692; J0696; J1630; J1644; J3370; J3535; J7030; J7050